=== PATIENT | female | born 1950 ===

== ENCOUNTER 2020-03-04 08:20 | Day surgery (SDC) | payer MEDICARE, OTHER ==
[2020-02-25 14:20] VITALS: BMI 24.1
[2020-03-04] MEDS ORDERED: OFLOXACIN 0.3% OPHTHALMIC SOLUTION 5 ML BOTTLE ONE (08:32)
[2020-03-04] MEDS ORDERED: TROPICAMIDE 1% OPHTH SOLN 15 ML BOTTLE ONE (08:32)
[2020-03-04] MEDS ORDERED: CYCLOPENTOLATE HCL 1% OPHTH SOLN 2 ML BOTTLE ONE (08:32)
[2020-03-04] MEDS ORDERED: KETOROLAC TROMETHAMINE 0.5% EYE DROP 1 DROP DROPS ONE (08:32)
[2020-03-04] MEDS ORDERED: PHENYLEPHRINE 2.5% OPHTH SOLN 15 ML BOTTLE ONE (08:33)
[2020-03-04] MEDS ORDERED: MIDAZOLAM HCL 2 MG/2 ML SINGLE DOSE VIAL ONE (08:37)
--- OUTSIDE RECORDS SUMMARY | 2020-03-04 08:52 | XMS ---
:1950 [facility] Care Team Providers Name Role Phone MD CHELITA Unavailable Unavailable ANTONIO FERRARO Unavailable Unavailable [id number] Unavailable Unavailable LATIA MILLER Unavailable Unavailable NENO RAE Unavailable Unavailable GERA MEYER Unavailable Unavailable Seun Unavailable Unavailable PEARL SHARMA Unavailable Unavailable RAVI MIKE Unavailable Unavailable JENN, HOME RESTORATION SERVICE SUPERVISOR-R Unavailable Unavailable [facility] Unavailable Unavailable Re-disclosure Warning The records that you are about to access may contain information from federally- assisted alcohol or drug abuse programs. If such information is present, then the following federally mandated warning applies: This information has been disclosed to you from records protected by federal confidentiality rules (42 CFR part 2). The federal rules prohibit you from making any further disclosure of this information unless further disclosure is expressly permitted by the written consent of the person to whom it pertains or as otherwise permitted by 42 CFR part 2. A general authorization for the release of medical or other information is NOT sufficient for this purpose. The Federal rules restrict any use of the information to criminally investigate or prosecute any alcohol or drug abuse patient.The records that you are about to access may contain highly sensitive health information, the redisclosure of which is protected by Article 27-F of the [facility] Public Health law. If you continue you may haveaccess to information: Regarding HIV / AIDS; Provided by facilities licensed or operated by the [facility] Office of Mental Health; or Provided by the [facility] Office for People With Developmental Disabilities. If such information is present, then the following [facility] mandated warning applies: This information has been disclosed to you from confidential records which are protected by state law. State law prohibits you from making any further disclosure of this information without the specific written consent of the person to whom it pertains, or as otherwise permitted by law. Any unauthorized further disclosure in violation of state law may result in a fine or fdc sentence or both. A general authorization for the release of medical or other information is NOT sufficient authorization for further disclosure. Allergies and Adverse Reactions Type Description Substance Reaction Status Data Source(s) 1 red dye red dye NEXTGEN ([facility]) Drug allergy Celebrex celecoxib 200 MG anaphylaxis Active eCW2 (Open Oral Capsule [facility] [Celebrex] [facility]) dog skin?? dog skin?? dog skin?? Unknown Active eCW2 ([facility]) fosamax fosamax Alendronic acid 70 rash and Active eCW2 ( Open MG Oral Tablet coughing Door [facility]) anxiety anxiety medications anxiety medications Unknown Active eCW2 (Open medications [facility]) Topamax Topamax topiramate 50 MG eyes Active eCW2 (Op en Oral Tablet swelling, [facility] [[facility]] rash [facility]) Lisinopril Lisinopril Lisinopril rash and Active eCW2 (Open shortness of [facility] breath [facility]) gabapentin gabapentin gabapentin 400 MG Unknown Active eCW2 (O pen Oral Capsule [facility]) red dye red dye red dye Unknown Active eCW2 (Open Door [facility]) red dye red dye red dye Unknown Active eCW2 (Open [facility]) dog skin?? dog skin?? dog skin?? Unknown Active eCW2 (Open Door [facility]) fosamax fosamax Alendronic acid 70 rash and Active eCW2 ( Open MG Oral Tablet coughing Door [facility] [Fostoa altax] [facility]) Topamax Topamax topiramate 50 MG eyes Active eCW2 (Op en Oral Tablet swelling, [facility] [Toptoa altax] rash [facility]) Lisinopril Lisinopril Lisinopril rash and Active eCW2 (Open shortness of Door [facility] breath [facility]) anxiety anxiety medications anxiety medications Unknown Active eCW2 (Open medications [facility]) gabapentin gabapentin gabapentin 300 MG Unknown Active eCW2 (O pen Oral Capsule [facility]) dog skin?? dog skin?? dog skin?? Unknown Active eCW2 ([facility]) fosamax fosamax Alendronic acid 70 rash and Active eCW2 ( Open MG Oral Tablet coughing Door [facility] [[facility]] [facility]) anxiety anxiety medications anxiety medications Unknown Active eCW2 (Open [facility]) Topamax Topamax topiramate 50 MG eyes Active eCW2 (Op en Oral Tablet swelling, [facility] [[facility]) Lisinopril Lisinopril Lisinopril rash and Active eCW2 (Open [facility]) gabapentin gabapentin gabapentin 100 MG Unknown Active eCW2 (O pen Oral Capsule [facility]) red dye red dye red dye Unknown Active eCW2 ([facility]) dog skin?? dog skin?? dog skin?? Unknown Active eCW2 ([facility]) fosamax fosamax Alendronic acid 70 rash and Active eCW2 ( Open MG Oral Tablet coughing [facility] [[facility]] [facility]) anxiety anxiety medications anxiety medications Unknown Active eCW2 (Open medications [facility]) Topamax Topamax topiramate 50 MG eyes Active eCW2 (Op en Oral Tablet swelling, [facility] [[facility] rash [facility]) Lisinopril Lisinopril Lisinopril rash and Active eCW2 ([facility]) gabapentin gabapentin gabapentin 50 MG/ML Unknown Active eCW2 (Open Oral Solution [facility]) red dye red dye red dye Unknown Active eCW2 ([facility]) dog skin?? dog skin?? dog skin?? Unknown Active eCW2 ([facility]) red dye red dye red dye Unknown Active eCW2 ([facility]) Lisinopril Lisinopril Lisinopril rash and Active eCW2 ([facility]) gabapentin gabapentin gabapentin 50 MG/ML Unknown Active eCW2 (Open Oral Solution [facility]) fosamax fosamax Alendronic acid 70 rash and Active eCW2 ( Open MG Oral Tablet coughing [facility] [[facility]) anxiety anxiety medications anxiety medications Unknown Active eCW2 (Open medications [facility]) Topamax Topamax topiramate 50 MG eyes Active eCW2 (Op en Oral Tablet swelling, [facility] [[facility]) anxiety anxiety medications anxiety medications Unknown Active eCW2 (Open medications [facility]) Topamax Topamax topiramate 50 MG eyes Active eCW2 (Op en Oral Tablet swelling, [facility] [[facility]] rash [facility]) gabapentin gabapentin gabapentin 50 MG/ML Unknown Active eCW2 (Open Oral Solution [facility]) Lisinopril Lisinopril Lisinopril rash and Active eCW2 (Open shortness of [facility]) red dye red dye red dye Unknown Active eCW2 ([facility]) dog skin?? dog skin?? dog skin?? Unknown Active eCW2 ([facility]) fosamax fosamax Alendronic acid 70 rash and Active eCW2 ( Open MG Oral Tablet coughing Door [facility]) Lisinopril Lisinopril Lisinopril 2.5 MG rash and Active eCW2 (O pen Oral Tablet [facility]) gabapentin gabapentin gabapentin 100 MG Unknown Active eCW2 (O pen Oral Capsule [facility]) red dye red dye red dye Unknown Active eCW2 ([facility]) dog skin?? dog skin?? dog skin?? Unknown Active eCW2 ([facility]) fosamax fosamax fosamax rash and Active eCW2 (Open coughing [facility]) anxiety anxiety medications anxiety medications Unknown Active eCW2 (Open medications [facility]) Topamax Topamax topiramate 200 MG eyes Active eCW2 (O pen Oral Tablet swelling, [facility] [[facility]] [facility]) Lisinopril Lisinopril Lisinopril 2.5 MG rash and Active eCW2 (O pen Oral Tablet shortness of [facility]) gabapentin gabapentin gabapentin 100 MG Unknown Active eCW2 (O pen Oral Capsule [facility]) red dye red dye red dye Unknown Active eCW2 ([facility]) dog skin?? dog skin?? dog skin?? Unknown Active eCW2 ([facility]) fosamax fosamax fosamax rash and Active eCW2 (Open coughing Door [facility]) anxiety anxiety medications anxiety medications Unknown Active eCW2 (Open medications [facility]) Topamax Topamax topiramate 200 MG eyes Active eCW2 (O pen Oral Tablet swelling, [facility] [Topamax] rash [facility]) Lisinopril Lisinopril Lisinopril 2.5 MG rash and Active eCW2 (O pen Oral Tablet shortness of [facility] breath [facility]) gabapentin gabapentin gabapentin 100 MG Unknown Active eCW2 (O pen Oral Capsule [facility]) red dye red dye red dye Unknown Active eCW2 (Open Door [facility]) dog skin?? dog skin?? dog skin?? Unknown Active eCW2 (Open Door [facility]) fosamax fosamax fosamax rash and Active eCW2 (Open coughing Door [facility]) anxiety anxiety medications anxiety medications Unknown Active eCW2 (Open medications [facility]) Topamax Topamax topiramate 200 MG eyes Active eCW2 (O pen Oral Tablet swelling, Door [facility] [Topamax] rash [facility]) red dye red dye red dye Unknown Active eCW2 (Open Door [facility]) dog skin?? dog skin?? dog skin?? Unknown Active eCW2 (Open Door [facility]) fosamax fosamax fosamax rash and Active eCW2 (Open coughing Door [facility]) anxiety anxiety medications anxiety medications Unknown Active eCW2 (Open medications [facility]) Topamax Topamax topiramate 50 MG eyes Active eCW2 (Op en Oral Tablet swelling, [facility] [Topamax] rash [facility]) gabapentin gabapentin gabapentin 800 MG Unknown Active eCW2 (O pen Oral Tablet [facility]) Lisinopril Lisinopril Lisinopril 5 MG Oral rash and Active eCW2 (Open Tablet shortness of [facility] breath [facility]) Drug allergy Celebrex celecoxib 200 MG anaphylaxis Active eCW2 (Open Oral Capsule [facility] [Celebrex] [facility]) Drug allergy topiramate topiramate [facility] Drug allergy NUCLEAR TEST DYE NUCLEAR TEST DYE [facility] Drug allergy Methylprednisolone Methylprednisolone [facility] Drug allergy ANTIANXIETY AND ANTIANXIETY AND We [facility] ANITDEPRESSIVES ANITDEPRESSIVES [facility] Drug allergy Celecoxib Celecoxib [facility] Drug allergy Red Dye Red Dye [facility] Drug allergy Morphine Morphine [facility] Drug allergy Diazepam Diazepam [facility] No No Information No Information eCW2 ( Open Information Door [facility]) No No Information No Information eCW2 ( Open Information Door [facility]) No No Information No Information eCW2 ( Open Information Door [facility]) No No Information No Allergy eCW2 (Open Information Information Door [facility]) No No Information No Allergy eCW2 (Open Information Information Door [facility]) No No Information No Allergy eCW2 (Open Information Information Door [facility]) No No Information No Allergy eCW2 (Open Information Information Door [facility]) No No Information No Allergy eCW2 (Open Information Information Door [facility]) Encounters Encounter Providers Location Date Indications Data Source(s ) Outpatient [facility]: [facility] 03/03/2020 [facility] ([facility] 05:12:18 PM [facility] EDT [facility]) Patient admitted. Outpatient Attender: [address] 12/29/2019 12:27:17 PM [facility] ([facility] EDT [facility]) Patient admitted. [place] 12/28/2019 eCW2 (Op en Door Open [facility] Door 12:00:00 AM T [facility]) Outpatient Attender: 12/19/2019 G45.8 [place] ANTONIO FERRARO [facility] KYM PhanOAdmitter: ANTONIO FERRAROReferrer: ANTONIO FERRARO G45.8 Outpatient Attender: NENO RAE 12/17/2019 [place] RUPESHAdmitter: BUTCH, 06:00:00 AM [facility] NENO GODDARDReferrer: [facility] NENO RAE [place] 11/13/2019 eCW2 (Op en Door Door Door 12:00:00 AM EDT [facility]) Outpatient Attender: RASHID 10/31/2019 [place] AMYAttender: BUTCH, 06:00:00 AM EDT [facility] NENO GODDARDAdmitter: [facility] RAVI MIKE [place] 10/24/2019 eCW2 ( Open Door Door [facility] 12:00:00 AM [facility] [place] 10/24/2019 eCW2 (Op en Door Door [facility] 12:00:00 AM [facility]T [facility] [place] 10/23/2019 eCW2 (Op en Door Door [facility] 12:00:00 AM EDT [facility] [place] [facility] 10/20/2019 eCW2 (Op en Door Open Door [facility] 12:00:00 AM EDT [facility] [place] [facility] 10/19/2019 eCW2 (Op en Door Open Door Door 12:00:00 AM EDT [facility] [place] [facility] [place] 10/11/2019 eCW2 ( Open Door Door Door 12:00:00 AM EDT [facility] [place] [facility] 09/27/2019 eCW2 (Op en Door Open Door Door 12:00:00 AM EDT [facility] [place] [facility] 09/10/2019 eCW2 (Op en Door Open Door [facility] 12:00:00 AM EDT [facility] [place] 09/05/2019 eCW2 (Op en Door Door Door 12:00:00 AM EDT [facility] [place] 08/25/2019 eCW2 (Op en Door Door Door 12:00:00 AM EDT [facility] Outpatient Attender: HVCS9 [facility] 08/17/2019 [facility] (Community 06:51:38 AM EDT [facility]) Patient admitted. [place] 08/04/2019 eCW2 (Op en Door Door Door 12:00:00 AM EST [facility] [place] [facility] 07/13/2019 eCW2 (Op en Door Open Door Door 12:00:00 AM EST [facility] [place] [facility] 07/13/2019 eCW2 (Op en Door Open Door Door 12:00:00 AM EST [facility] [place] 07/03/2019 eCW2 (Op en Door Door Door 12:00:00 AM EST [facility] [place] 07/02/2019 eCW2 (Op en Door Door Door 12:00:00 AM EST [facility] [place] [facility] 06/29/2019 eCW2 (Op en Door Open Door Door 12:00:00 AM EST [facility] [place] 06/28/2019 eCW2 (Op en Door Door Door 12:00:00 AM EST [facility] [place] 06/22/2019 eCW2 (Op en Door Door Door 12:00:00 AM EST [facility] Outpatient Attender: 06/20/2019 Abdoul MIKE, 01:56:00 PM EST [facility] Orion fernando AMYAdmitter: Care Corpora tiRAVI Licona [place] [facility] 06/18/2019 eCW2 (Op en Door Open Door Door 12:00:00 AM EST [facility] [place] 06/15/2019 eCW2 (Op en Door Open Door Door 12:00:00 AM EST [facility] [place] 06/15/2019 eCW2 (Op en Door Door Door 12:00:00 AM EST [facility] [place] [facility] 06/01/2019 eCW2 (Op en Door Open Door Door 12:00:00 AM EST [facility] [place] 06/01/2019 eCW2 (Op en Door Open Door Door 12:00:00 AM EST [facility] Outpatient Attender: 05/22/2019 NEXTGEN [place] 09:30:00 AM EST [facility] ) Outpatient Attender: BUTCH, 03/21/2019 Keyanna LAZCANO 06:00:00 AM [facility] Care Billie oration : RAVI MIKEAdmitter: NENO RAE Outpatient Attender: BUTCH, 12/11/2018 Keyanna LAZCANO 06:00:00 AM EDT [facility] Orion fernando GODDARDAdmitter Care Billie oration : NENO RAE Outpatient 12/03/2018 [facility] (Community 08:06:59 AM EDT Health Ca re [facility]) [place] 11/09/2018 eCW2 (Op en Door Door Door 12:00:00 AM [facility]T [facility] Outpatient Attender: JASMINE 11/02/2018 I77.1 [facility] tanner ALVAREZ 06:00:00 AM EDT I65.23 [facility] Orion AlvaradoAdmitter: Care Corporat ion ANTONIO FERRAROReferrer: ANTONIO FERRARO I77.1 I65.23 [place] [facility] [place] [facility] 09/27/2018 eCW 2 (Open Door Door Door 12:00:00 AM EDT [facility] [place] [facility] [place] 09/27/2018 eCW 2 (Open Door Door Door 12:00:00 AM EDT [facility] Outpatient Attender: 09/26/2018 I10 [facility] christine [id number] 10:21:00 AM EDT [facility] PAULArnulfoAdmitter: [id number] LATIA MILLERReferrer: PEARL SHARMA I10 [place] 09/21/2018 eCW2 (Op en Door Door Door 12:00:00 AM EDT [facility] [place] [facility] 09/20/2018 eCW2 (Op en Door Open Door Door 12:00:00 AM EDT [facility] Outpatient 09/15/2018 [facility] (Community 09:22:32 AM EDT Health Ca re [facility]) Outpatient 09/14/2018 [facility] (Community 04:09:15 PM EDT Health Ca re [facility]) [place] [facility] 09/08/2018 eCW2 (Op en Door Open Door Door 12:00:00 AM EDT [facility] Outpatient Attender: BUTCH, 09/04/2018 Keyanna LAZCANO 12:00:00 AM EDT Health [facility] hospital RUPESHAdmitter: Corporat ion NENO RAE Outpatient 08/18/2018 [facility] 07:27:00 AM EDT ([facility] [place] [facility] 08/02/2018 eCW2 (Op en Door Open Door Door 12:00:00 AM EST [facility] [place] [facility] 07/14/2018 eCW2 (Op en Door Open Door Door 12:00:00 AM EST [facility] [place] 06/12/2018 eCW2 (Op en Door Door Door 12:00:00 AM EST [facility] [place] [facility] 05/26/2018 eCW2 (Op en Door Open Door Door 12:00:00 AM EST [facility] [place] [facility] 05/12/2018 eCW2 (Op en Door Open Door Door 12:00:00 AM EST [facility] [place] [facility] 04/26/2018 eCW2 (Op en Door Open Door Door 12:00:00 AM EST [facility] [place] 03/24/2018 eCW2 (Op en Door Open Door Door 12:00:00 AM EDT [facility] [place] 03/10/2018 eCW2 (Op en Door Open Door Door 12:00:00 AM EDT [facility] [place] 02/24/2018 eCW2 (Op en Door Open Door Door 12:00:00 AM EDT [facility] [place] 12/09/2017 eCW2 (Op en Door Door Door 12:00:00 AM EDT [facility] [place] 12/07/2017 eCW2 (Op en Door Open Door Door 12:00:00 AM EDT [facility] [place] 11/23/2017 eCW2 (Op en Door Open Door Door 12:00:00 AM EDT [facility] [place] 10/21/2017 eCW2 (Op en Door Open Door Door 12:00:00 AM EDT [facility] [place] 10/14/2017 eCW2 (Op en Door Open Door Door 12:00:00 AM EDT [facility] [place] [facility] 09/28/2017 eCW2 (Op en Door Open Door Door 12:00:00 AM EDT [facility] [place] 09/26/2017 eCW2 (Op en Door Door Door 12:00:00 AM EDT [facility] [place] [facility] 09/26/2017 eCW2 (Op en Door Open Door Door 12:00:00 AM EDT [facility] [place] 09/26/2017 eCW2 (Op en Door Open Door Door 12:00:00 AM EDT [facility] [place] 08/19/2017 eCW2 (Op en Door Open Door Door 12:00:00 AM EDT [facility] [place] 08/19/2017 eCW2 (Op en Door Door Door 12:00:00 AM EDT [facility] [place] 08/12/2017 eCW2 (Op en Door Door Door 12:00:00 AM EDT [facility] [place] 08/05/2017 eCW2 (Op en Door Open Door Door 12:00:00 AM EST [facility] [place] 07/18/2017 eCW2 (Op en Door Open Door Door 12:00:00 AM EST [facility] [place] 06/24/2017 eCW2 (Op en Door Open Door Door 12:00:00 AM EST [facility] [place] 06/15/2017 eCW2 (Op en Door Open Door Door 12:00:00 AM EST [facility] [place] 04/07/2017 eCW2 (Op en Door Open Door Door 12:00:00 AM EST [facility] [place] 04/06/2017 eCW2 (Op en Door Open Door Door 12:00:00 AM EST [facility] [place] 04/04/2017 eCW2 (Op en Door Door Door 12:00:00 AM EST [facility] [place] 02/21/2017 eCW2 (Op en Door Open Door Door 12:00:00 AM EDT [facility] [place] 02/08/2017 eCW2 (Op en Door Open Door Door 12:00:00 AM EDT [facility] [place] 02/02/2017 eCW2 (Op en Door Open Door Door 12:00:00 AM EDT [facility] [place] 01/26/2017 eCW2 (Op en Door Open Door Door 12:00:00 AM EDT [facility] [place] 01/24/2017 eCW2 (Op en Door Open Door Door 12:00:00 AM EDT [facility] [place] 12/20/2016 eCW2 (Op en Door Open Door Door 12:00:00 AM EDT [facility] [place] 10/18/2016 eCW2 (Op en Door Open Door Door 12:00:00 AM EDT [facility] [place] 10/18/2016 eCW2 (Op en Door Open Door Door 12:00:00 AM EDT [facility] [place] 08/30/2016 eCW2 (Op en Door Open Door Door 12:00:00 AM EDT [facility] [place] 07/15/2016 eCW2 (Op en Door Door Door 12:00:00 AM EST [facility] [place] 07/05/2016 eCW2 (Op en Door Open Door Door 12:00:00 AM EST [facility] [place] 06/28/2016 eCW2 (Op en Door Open Door Door 12:00:00 AM EST [facility] [place] [facility] [place] 06/03/2016 eCW2 (Open Door Door Door 12:00:00 AM EST [facility] [place] 04/19/2016 eCW2 (Op en Door Open Door Door 12:00:00 AM EST [facility] [place] 04/07/2016 eCW2 (Op en Door Open Door Door 12:00:00 AM EST [facility] [place] 03/10/2016 eCW2 (Op en Door Open Door Door 12:00:00 AM EDT [facility] d[facility]) [place] 03/10/2016 eCW2 (Op en Door Open Door Door 12:00:00 AM EDT [facility] dical [facility]) [place] 03/08/2016 eCW2 (Op en Door Open Door Door 12:00:00 AM EDT [facility] dical [facility]) [place] [facility] [place] 03/05/2016 eCW2 (Open Door Door Door 12:00:00 AM EDT [facility] dical Center) [place] 03/03/2016 eCW2 (Op en Door Open Door Door 12:00:00 AM EDT [facility]) [place] [facility] [place] 02/26/2016 eCW2 (Open Door Door Door 12:00:00 AM EDT [facility]) [place] 01/26/2016 eCW2 (Op en Door Open Door Door 12:00:00 AM EDT [facility]) [place] 01/12/2016 eCW2 (Op en Door Open Door Door 12:00:00 AM EDT [facility]) [place] 01/07/2016 eCW2 (Op en Door Door Door 12:00:00 AM EDT [facility]) [place] 12/22/2015 eCW2 (Op en Door Open Door Door 12:00:00 AM EDT [facility]) [place] 12/22/2015 eCW2 (Op en Door Open Door Door 12:00:00 AM EDT [facility]) Attender: 12/17/2015 [place] [id number] 04:34:00 PM EDT Hos [facility]ital [id number] [facility]_[id number] [place] 12/10/2015 eCW2 (Op en Door Open Door Door 12:00:00 AM EDT [facility]) [place] [facility] 12/10/2015 eCW2 (Op en Door Open Door Door 12:00:00 AM EDT [facility]) [place] 11/07/2015 eCW2 (Op en Door Door Door 12:00:00 AM EDT [facility] [place] [facility] 10/15/2015 eCW2 (Op en Door Open Door Door 12:00:00 AM EDT [facility] [place] 10/15/2015 eCW2 (Op en Door Door Door 12:00:00 AM EDT [facility] [place] 10/06/2015 eCW2 (Op en Door Door Door 12:00:00 AM EDT [facility] [place] [facility] 08/25/2015 eCW2 (Op en Door Open Door Door 12:00:00 AM EDT [facility] [place] 08/22/2015 eCW2 (Op en Door Door Door 12:00:00 AM EDT [facility] [place] 08/21/2015 eCW2 (Op en Door Open Door Door 12:00:00 AM EDT [facility] [place] 08/06/2015 eCW2 (Op en Door Open Door Door 12:00:00 AM EST [facility] [place] 07/01/2015 eCW2 (Op en Door Open Door Door 12:00:00 AM EST [facility] [place] 06/30/2015 eCW2 (Op en Door Open Door Door 12:00:00 AM EST [facility] [place] 06/16/2015 eCW2 (Op en Door Door Door 12:00:00 AM EST [facility] [place] 06/13/2015 eCW2 (Op en Door Open Door Door 12:00:00 AM EST [facility] [place] 06/13/2015 eCW2 (Op en Door Door Door 12:00:00 AM EST [facility] [place] 06/13/2015 eCW2 (Op en Door Door Door 12:00:00 AM EST [facility] [place] 06/11/2015 eCW2 (Op en Door Open Door Door 12:00:00 AM EST [facility] [place] 06/11/2015 eCW2 (Op en Door Door Door 12:00:00 AM EST [facility] [place] 06/11/2015 eCW2 (Op en Door Door Door 12:00:00 AM EST [facility] [place] 05/05/2015 eCW2 (Op en Door Open Door Door 12:00:00 AM EST [facility] [place] 04/28/2015 eCW2 (Op en Door Door Door 12:00:00 AM EST [facility] [place] 04/16/2015 eCW2 (Op en Door Open Door Door 12:00:00 AM EST [facility] [place] 04/14/2015 eCW2 (Op en Door Open Door Door 12:00:00 AM EST [facility] [place] 04/08/2015 eCW2 (Op en Door Door Door 12:00:00 AM EST [facility] [place] 04/07/2015 eCW2 (Op en Door Open Door Door 12:00:00 AM EST [facility] [place] 04/07/2015 eCW2 (Op en Door Door Door 12:00:00 AM EST [facility] [place] [facility] [place] 04/02/2015 eCW2 (Open Door Door Door 12:00:00 AM EST [facility] [place] 03/31/2015 eCW2 (Op en Door Open Door Door 12:00:00 AM EST [facility] [place] 03/31/2015 eCW2 (Op en Door Door Door 12:00:00 AM EST [facility] [place] 03/31/2015 eCW2 (Op en Door Door Door 12:00:00 AM EST [facility] [place] 03/31/2015 eCW2 (Op en Door Door Door 12:00:00 AM EST [facility] [place] 03/28/2015 eCW2 (Op en Door Open Door Door 12:00:00 AM EDT [facility] [place] 03/10/2015 eCW2 (Op en Door Open Door Door 12:00:00 AM EDT [facility]) [place] 03/10/2015 eCW2 (Op en Door Open Door Door 12:00:00 AM EDT [facility] [place] 02/19/2015 eCW2 (Op en Door Door Door 12:00:00 AM EDT [facility]) [place] 02/10/2015 eCW2 (Op en Door Open Door Door 12:00:00 AM EDT [facility] [place] 01/29/2015 eCW2 (Op en Door Door Door 12:00:00 AM EDT [facility] [place] 01/27/2015 eCW2 (Op en Door Door Door 12:00:00 AM EDT [facility] [place] 01/27/2015 eCW2 (Op en Door Open Door Door 12:00:00 AM EDT [facility]) [place] 01/27/2015 eCW2 (Op en Door Door Door 12:00:00 AM EDT [facility] [place] 01/27/2015 eCW2 (Op en Door Door Door 12:00:00 AM EDT [facility]) [place] 01/20/2015 eCW2 (Op en Door Door Door 12:00:00 AM EDT [facility] [place] 01/15/2015 eCW2 (Op en Door Door Door 12:00:00 AM EDT [facility]) [place] 01/08/2015 eCW2 (Op en Door Open Door Door 12:00:00 AM EDT [facility]) [place] 12/19/2014 eCW2 (Op en Door Door Door 12:00:00 AM EDT [facility]) [place] 12/19/2014 eCW2 (Op en Door Door Door 12:00:00 AM EDT [facility]) [place] 12/13/2014 eCW2 (Op en Door Door Door 12:00:00 AM EDT [facility] [place] [facility] 12/12/2014 eCW2 (Op en Door Open Door Door 12:00:00 AM EDT [facility] [place] 12/11/2014 eCW2 (Op en Door Open Door Door 12:00:00 AM EDT [facility] [place] 12/11/2014 eCW2 (Op en Door Door Door 12:00:00 AM EDT [facility] [place] 12/09/2014 eCW2 (Op en Door Door Door 12:00:00 AM EDT [facility] [place] 11/14/2014 eCW2 (Op en Door Door Door 12:00:00 AM EDT [facility] [place] 11/13/2014 eCW2 (Op en Door Door Door 12:00:00 AM EDT [facility] [place] 11/07/2014 eCW2 (Op en Door Door Door 12:00:00 AM EDT [facility] [place] 11/06/2014 eCW2 (Op en Door Open Door Door 12:00:00 AM EDT [facility] [place] 10/25/2014 eCW2 (Op en Door Open Door Door 12:00:00 AM EDT [facility] [place] 10/23/2014 eCW2 (Op en Door Open Door Door 12:00:00 AM EDT [facility] [place] 09/11/2014 eCW2 (Op en Door Open Door Door 12:00:00 AM EDT [facility] [place] 09/10/2014 eCW2 (Op en Door Door Door 12:00:00 AM EDT [facility] [place] 08/16/2014 eCW2 (Op en Door Door Door 12:00:00 AM EDT [facility] [place] 08/13/2014 eCW2 (Op en Door Door Door 12:00:00 AM EDT [facility] [place] 08/13/2014 eCW2 (Op en Door Door Door 12:00:00 AM EDT [facility] [place] 07/31/2014 eCW2 (Op en Door Open Door Door 12:00:00 AM EST [facility] [place] 07/15/2014 eCW2 (Op en Door Door Door 12:00:00 AM EST [facility] [place] 07/10/2014 eCW2 (Op en Door Door Door 12:00:00 AM EST [facility] [place] 07/04/2014 eCW2 (Op en Door Door Door 12:00:00 AM EST [facility] [place] 07/03/2014 eCW2 (Op en Door Open Door Door 12:00:00 AM EST [facility] [place] 06/26/2014 eCW2 (Op en Door Door Door 12:00:00 AM EST [facility] [place] 05/31/2014 eCW2 (Op en Door Open Door Door 12:00:00 AM EST [facility] [place] 05/16/2014 eCW2 (Op en Door Door Door 12:00:00 AM EST [facility] [place] 05/16/2014 eCW2 (Op en Door Door Door 12:00:00 AM EST [facility] [place] 05/15/2014 eCW2 (Op en Door Open Door Door 12:00:00 AM EST [facility] [place] 05/08/2014 eCW2 (Op en Door Door Door 12:00:00 AM EST [facility] [place] 05/08/2014 eCW2 (Op en Door Open Door Door 12:00:00 AM EST [facility] [place] 05/08/2014 eCW2 (Op en Door Door Door 12:00:00 AM EST [facility] [place] 05/06/2014 eCW2 (Op en Door Open Door Door 12:00:00 AM EST [facility] [place] 05/06/2014 eCW2 (Op en Door Open Door Door 12:00:00 AM EST [facility] [place] 05/06/2014 eCW2 (Op en Door Open Door Door 12:00:00 AM EST [facility] [place] 04/29/2014 eCW2 (Op en Door Door Door 12:00:00 AM EST [facility] [place] 04/17/2014 eCW2 (Op en Door Door Door 12:00:00 AM EST [facility] [place] 04/01/2014 eCW2 (Op en Door Open Door Door 12:00:00 AM EST [facility] [place] 03/11/2014 eCW2 (Op en Door Open Door Door 12:00:00 AM EDT [facility] [place] 03/09/2014 eCW2 (Op en Door Door Door 12:00:00 AM EDT [facility] [place] 02/27/2014 eCW2 (Op en Door Open Door Door 12:00:00 AM EDT [facility] [place] 02/18/2014 eCW2 (Op en Door Open Door Door 12:00:00 AM EDT [facility] [place] 01/29/2014 eCW2 (Op en Door Open Door Door 12:00:00 AM EDT [facility] [place] 01/29/2014 eCW2 (Op en Door Open Door Door 12:00:00 AM EDT [facility] [place] 01/23/2014 eCW2 (Op en Door Open Door Door 12:00:00 AM EDT [facility] [place] 01/23/2014 eCW2 (Op en Door Open Door Door 12:00:00 AM EDT [facility] [place] 01/21/2014 eCW2 (Op en Door Open Door Door 12:00:00 AM EDT [facility] [place] 01/17/2014 eCW2 (Op en Door Open Door Door 12:00:00 AM EDT [facility] [place] 01/17/2014 eCW2 (Op en Door Open Door Door 12:00:00 AM EDT [facility] [place] 01/14/2014 eCW2 (Op en Door Open Door Door 12:00:00 AM EDT [facility] [place] 12/18/2013 eCW2 (Op en Door Open Door Door 12:00:00 AM EDT [facility] [place] 12/08/2013 eCW2 (Op en Door Open Door Door 12:00:00 AM EDT [facility] [place] 11/28/2013 eCW2 (Op en Door Open Door Door 12:00:00 AM EDT [facility] [place] 10/11/2013 eCW2 (Op en Door Open Door Door 12:00:00 AM EDT [facility] [place] 08/01/2013 eCW2 (Op en Door Door Door 12:00:00 AM EST [facility] [place] 07/02/2013 eCW2 (Op en Door Open Door Door 12:00:00 AM EST [facility] [place] 06/08/2013 eCW2 (Op en Door Open Door Door 12:00:00 AM EST [facility] [place] 06/06/2013 eCW2 (Op en Door Open Door Door 12:00:00 AM EST [facility] [place] 05/24/2013 eCW2 (Op en Door Door Door 12:00:00 AM EST [facility] [place] 05/24/2013 eCW2 (Op en Door Door Door 12:00:00 AM EST [facility] [place] 05/24/2013 eCW2 (Op en Door Open Door Door 12:00:00 AM EST [facility] [place] 05/24/2013 eCW2 (Op en Door Door Door 12:00:00 AM EST [facility] [place] 04/11/2013 eCW2 (Op en Door Open Door Door 12:00:00 AM EST [facility] [place] 04/04/2013 eCW2 (Op en Door Open Door Door 12:00:00 AM EST [facility] [place] 03/13/2013 eCW2 (Op en Door Door Door 12:00:00 AM EDT [facility] [place] 03/13/2013 eCW2 (Op en Door Door Door 12:00:00 AM EDT [facility] [place] 03/12/2013 eCW2 (Op en Door Open Door Door 12:00:00 AM EDT [facility] [place] 02/12/2013 eCW2 (Op en Door Open Door Door 12:00:00 AM EDT [facility] [place] 02/05/2013 eCW2 (Op en Door Door Door 12:00:00 AM EDT [facility] [place] 01/16/2013 eCW2 (Op en Door Open Door Door 12:00:00 AM EDT [facility] [place] 12/06/2012 eCW2 (Op en Door Open Door Door 12:00:00 AM EDT [facility] [place] 12/04/2012 eCW2 (Op en Door Open Door Door 12:00:00 AM EDT [facility]) [place] 11/20/2012 eCW2 (Op en Door Open Door Door 12:00:00 AM EDT [facility] [place] 11/20/2012 eCW2 (Op en Door Open Door Door 12:00:00 AM EDT [facility] [place] 11/16/2012 eCW2 (Op en Door Open Door Door 12:00:00 AM EDT [facility] [place] 11/13/2012 eCW2 (Op en Door Open Door Door 12:00:00 AM EDT [facility] [place] 11/13/2012 eCW2 (Op en Door Door Door 12:00:00 AM EDT [facility] [place] 11/13/2012 eCW2 (Op en Door Door Door 12:00:00 AM EDT [facility] [place] 11/11/2012 eCW2 (Op en Door Open Door Door 12:00:00 AM EDT [facility] [place] 10/26/2012 eCW2 (Op en Door Door Door 12:00:00 AM EDT [facility] [place] 10/25/2012 eCW2 (Op en Door Door Door 12:00:00 AM EDT [facility] [place] 10/25/2012 eCW2 (Op en Door Door Door 12:00:00 AM EDT [facility] [place] 10/20/2012 eCW2 (Op en Door Open Door Door 12:00:00 AM EDT [facility] [place] 10/11/2012 eCW2 (Op en Door Door Door 12:00:00 AM EDT [facility] [place] 09/18/2012 eCW2 (Op en Door Open Door Door 12:00:00 AM EDT [facility] [place] 08/16/2012 eCW2 (Op en Door Door Door 12:00:00 AM EDT [facility] [place] 08/09/2012 eCW2 (Op en Door Open Door Door 12:00:00 AM EDT [facility] [place] 08/09/2012 eCW2 (Op en Door Open Door Door 12:00:00 AM EDT [facility] [place] 08/03/2012 eCW2 (Op en Door Door Door 12:00:00 AM EST [facility] [place] 07/18/2012 eCW2 (Op en Door Door Door 12:00:00 AM EST [facility] [place] 07/13/2012 eCW2 (Op en Door Door Door 12:00:00 AM EST [facility] [place] 07/12/2012 eCW2 (Op en Door Open Door Door 12:00:00 AM EST [facility] [place] 07/03/2012 eCW2 (Op en Door Door Door 12:00:00 AM EST [facility] [place] 06/21/2012 eCW2 (Op en Door Door Door 12:00:00 AM EST [facility] [place] 06/12/2012 eCW2 (Op en Door Open Door Door 12:00:00 AM EST [facility] [place] 06/09/2012 eCW2 (Op en Door Open Door Door 12:00:00 AM EST [facility] [place] 06/07/2012 eCW2 (Op en Door Open Door Door 12:00:00 AM EST [facility] [place] 02/16/2012 eCW2 (Op en Door Door Door 12:00:00 AM EDT [facility] [place] 02/09/2012 eCW2 (Op en Door Open Door Door 12:00:00 AM EDT [facility] [place] 01/28/2012 eCW2 (Op en Door Open Door Door 12:00:00 AM EDT [facility] [place] 01/28/2012 eCW2 (Op en Door Open Door Door 12:00:00 AM EDT [facility] [place] 01/20/2012 eCW2 (Op en Door Open Door Door 12:00:00 AM EDT [facility] [place] 12/31/2011 eCW2 (Op en Door Open Door Door 12:00:00 AM EDT [facility] [place] 12/24/2011 eCW2 (Op en Door Open Door Door 12:00:00 AM EDT [facility] [place] 11/24/2011 eCW2 (Op en Door Open Door Door 12:00:00 AM EDT [facility] [place] 11/24/2011 eCW2 (Op en Door Open Door Door 12:00:00 AM EDT [facility] [place] 10/28/2011 eCW2 (Op en Door Open Door Door 12:00:00 AM EDT [facility] [place] 10/27/2011 eCW2 (Op en Door Open Door Door 12:00:00 AM EDT [facility] [place] 10/27/2011 eCW2 (Op en Door Door Door 12:00:00 AM EDT [facility] [place] 10/18/2011 eCW2 (Op en Door Door Door 12:00:00 AM EDT [facility] [place] [facility] 09/27/2011 eCW2 (Op en Door Open Door Door 12:00:00 AM EDT [facility] [place] 09/17/2011 eCW2 (Op en Door Open Door Door 12:00:00 AM EDT [facility] [place] 09/08/2011 eCW2 (Op en Door Door Door 12:00:00 AM EDT [facility] [place] 08/25/2011 eCW2 (Op en Door Door Door 12:00:00 AM EDT [facility] [place] 08/25/2011 eCW2 (Op en Door Door Door 12:00:00 AM EDT [facility] [place] 08/25/2011 eCW2 (Op en Door Door Door 12:00:00 AM EDT [facility] [place] 07/21/2011 eCW2 (Op en Door Door Door 12:00:00 AM EST [facility] [place] 06/21/2011 eCW2 (Op en Door Open Door Door 12:00:00 AM EST [facility] [place] 06/02/2011 eCW2 (Op en Door Door Door 12:00:00 AM EST [facility] [place] 05/10/2011 eCW2 (Op en Door Open Door Door 12:00:00 AM EST [facility] [place] 05/10/2011 eCW2 (Op en Door Open Door Door 12:00:00 AM EST [facility] [place] [facility] 04/05/2011 eCW2 (Op en Door Open Door Door 12:00:00 AM EST [facility] [place] [facility] 04/05/2011 eCW2 (Op en Door Open Door Door 12:00:00 AM EST [facility] [place] 03/24/2011 eCW2 (Op en Door Door Door 12:00:00 AM EDT [facility] [place] 03/08/2011 eCW2 (Op en Door Door Door 12:00:00 AM EDT [facility] [place] [facility] 03/03/2011 eCW2 (Op en Door Open Door Door 12:00:00 AM EDT [facility] [place] [facility] 03/02/2011 eCW2 (Op en Door Open Door Door 12:00:00 AM EDT [facility] [place] [facility] 02/03/2011 eCW2 (Op en Door Open Door Door 12:00:00 AM EDT [facility] [place] [facility] 02/03/2011 eCW2 (Op en Door Open Door Door 12:00:00 AM EDT [facility] [place] [facility] 02/03/2011 eCW2 (Op en Door Open Door Door 12:00:00 AM EDT [facility] [place] [facility] 01/06/2011 eCW2 (Op en Door Open Door Door 12:00:00 AM EDT [facility] [place] [facility] 12/30/2010 eCW2 (Op en Door Open Door Door 12:00:00 AM EDT [facility] [place] [facility] 12/30/2010 eCW2 (Op en Door Open Door Door 12:00:00 AM EDT [facility] [place] [facility] 12/16/2010 eCW2 (Op en Door Open [facility] Door 12:00:00 AM EDT [facility] [place] [facility] 12/14/2010 eCW2 (Op en Door Open Door Door 12:00:00 AM EDT [facility] [place] [facility] 12/14/2010 eCW2 (Op en Door Open Door Door 12:00:00 AM EDT [facility] [place] [facility] 12/02/2010 eCW2 (Op en Door Open Door Door 12:00:00 AM EDT [facility] [place] [facility] 11/18/2010 eCW2 (Op en Door Open [facility] Door 12:00:00 AM EDT [facility] [place] [facility] 11/02/2010 eCW2 (Op en Door Open [facility] Door 12:00:00 AM EDT [facility] [place] [facility] 10/05/2010 eCW2 (Op en Door Open Door Door 12:00:00 AM EDT [facility] [place] [facility] 10/05/2010 eCW2 (Op en Door Open Door Door 12:00:00 AM EDT [facility] [place] [facility] 09/21/2010 eCW2 (Op en Door Open Door Door 12:00:00 AM EDT [facility] [place] [facility] 09/02/2010 eCW2 (Op en Door Open Door Door 12:00:00 AM EDT [facility] [place] [facility] 08/14/2010 eCW2 (Op en Door Open [facility] Door 12:00:00 AM EDT [facility] [place] [facility] 07/10/2010 eCW2 (Op en Door Open Door Door 12:00:00 AM EST [facility] [place] [facility] 06/19/2010 eCW2 (Op en Door Open [facility] Door 12:00:00 AM EST [facility] [place] [facility] 06/19/2010 eCW2 (Op en Door Open [facility] Door 12:00:00 AM EST [facility] [place] [facility] 06/12/2010 eCW2 (Op en Door Open [facility] Door 12:00:00 AM EST [facility] [place] 06/08/2010 eCW2 (Op en Door Door Door 12:00:00 AM EST [facility] [place] [facility] 05/27/2010 eCW2 (Op en Door Open [facility] Door 12:00:00 AM EST [facility] [place] [facility] 05/18/2010 eCW2 (Op en Door Open [facility] 12:00:00 AM EST [facility] [place] [facility] 05/06/2010 eCW2 (Op en Door Open [facility] 12:00:00 AM EST [facility] [place] [facility] 05/04/2010 eCW2 (Op en Door Open [facility] 12:00:00 AM EST [facility] [place] [facility] 04/29/2010 eCW2 (Op en Door Open [facility] 12:00:00 AM EST [facility] [place] 04/22/2010 eCW2 (Op en Door Door Door 12:00:00 AM EST [facility] [place] 04/21/2010 eCW2 (Op en Door Door Door 12:00:00 AM EST [facility] [place] [facility] 04/10/2010 eCW2 (Op en Door Open [facility] Door 12:00:00 AM EST [facility] [place] [facility] [place] [facility] 04/10/2010 eCW2 (Op en Door Door Door 12:00:00 AM EST [facility] [place] [facility] 03/27/2010 eCW2 (Op en Door Open Door Door 12:00:00 AM EDT [facility] [place] [facility] 02/06/2010 eCW2 (Op en Door Open [facility] Door 12:00:00 AM EDT [facility] [place] [facility] 02/06/2010 eCW2 (Op en Door Open Door Door 12:00:00 AM EDT [facility] [place] [facility] 12/15/2009 eCW2 (Op en Door Open Door Door 12:00:00 AM EDT [facility] [place] 12/12/2009 eCW2 (Op en Door Door Door 12:00:00 AM EDT [facility] [place] 09/04/2009 eCW2 (Op en Door Door Door 12:00:00 AM EDT [facility] [facility] [place] 08/11/2009 eCW2 (Op en Door Door Door 12:00:00 AM EDT [facility] [place] 08/04/2009 eCW2 (Op en Door Door Door 12:00:00 AM EST [facility] [place] 08/02/2009 eCW2 (Op en Door Door Door 12:00:00 AM EST [facility] [place] 04/04/2009 eCW2 (Op en Door Door Door 12:00:00 AM EST [facility] [place] 03/26/2009 eCW2 (Op en Door Door Door 12:00:00 AM EDT [facility] [place] 03/24/2009 eCW2 (Op en Door Door Door 12:00:00 AM EDT [facility] [place] 03/24/2009 eCW2 (Op en Door Door Door 12:00:00 AM EDT [facility] [place] 02/21/2009 eCW2 (Op en Door Door Door 12:00:00 AM EDT [facility] [place] 02/17/2009 eCW2 (Op en Door Door Door 12:00:00 AM EDT [facility] [place] 02/14/2009 eCW2 (Op en Door Door Door 12:00:00 AM EDT [facility] [place] 01/20/2009 eCW2 (Op en Door Door Door 12:00:00 AM EDT [facility] [place] 01/11/2009 eCW2 (Op en Door Door Door 12:00:00 AM EDT [facility] [place] 01/06/2009 eCW2 (Op en Door Door Door 12:00:00 AM EDT [facility] [place] 12/09/2008 eCW2 (Op en Door Door Door 12:00:00 AM EDT [facility] [place] 11/23/2008 eCW2 (Op en Door Door Door 12:00:00 AM EDT [facility] [place] 11/04/2008 eCW2 (Op en Door Door Door 12:00:00 AM EDT [facility] [place] 10/18/2008 eCW2 (Op en Door Door Door 12:00:00 AM EDT [facility] [place] 09/30/2008 eCW2 (Op en Door Door Door 12:00:00 AM EDT [facility] [place] 09/26/2008 eCW2 (Op en Door Door Door 12:00:00 AM EDT [facility] [place] 09/25/2008 eCW2 (Op en Door Door Door 12:00:00 AM EDT [facility] [place] 09/18/2008 eCW2 (Op en Door Door Door 12:00:00 AM EDT [facility] [place] 09/04/2008 eCW2 (Op en Door Door Door 12:00:00 AM EDT [facility] [place] 08/14/2008 eCW2 (Op en Door Door Door 12:00:00 AM EDT [facility] [place] 06/12/2008 eCW2 (Op en Door Door Door 12:00:00 AM EST [facility] [place] 06/07/2008 eCW2 (Op en Door Door Door 12:00:00 AM EST [facility] [place] 06/03/2008 eCW2 (Op en Door Door Door 12:00:00 AM EST [facility] [place] 06/03/2008 eCW2 (Op en Door Door Door 12:00:00 AM EST [facility] [place] 04/05/2008 eCW2 (Op en Door Door Door 12:00:00 AM EST [facility] [place] 04/05/2008 eCW2 (Op en Door Door Door 12:00:00 AM EST [facility] [place] 04/01/2008 eCW2 (Op en Door Door Door 12:00:00 AM EST [facility] [place] 04/01/2008 eCW2 (Op en Door Door Door 12:00:00 AM EST [facility] [place] 03/22/2008 eCW2 (Op en Door Door Door 12:00:00 AM EDT [facility] [place] 09/13/2007 eCW2 (Op en Door Door Door 12:00:00 AM EDT [facility] [place] 09/04/2007 eCW2 (Op en Door Door Door 12:00:00 AM EDT [facility] [place] 08/21/2007 eCW2 (Op en Door Door Door 12:00:00 AM EDT [facility] [place] 08/01/2007 eCW2 (Op en Door Door Door 12:00:00 AM EST [facility] [place] 05/24/2007 eCW2 (Op en Door Door Door 12:00:00 AM EST [facility] [place] 04/25/2007 eCW2 (Op en Door Door Door 12:00:00 AM EST [facility] [place] 03/24/2007 eCW2 (Op en Door Door Door 12:00:00 AM EDT [facility] [place] 03/17/2007 eCW2 (Op en Door Door Door 12:00:00 AM EDT [facility] [place] 03/17/2007 eCW2 (Op en Door Door Door 12:00:00 AM EDT [facility] [place] 03/16/2007 eCW2 (Op en Door Door Door 12:00:00 AM EDT [facility] [place] 03/16/2007 eCW2 (Op en Door Door Door 12:00:00 AM EDT [facility] [place] 03/13/2007 eCW2 (Op en Door Door Door 12:00:00 AM EDT [facility] [place] 03/01/2007 eCW2 (Op en Door Door Door 12:00:00 AM EDT [facility]) [place] 02/08/2007 eCW2 (Op en Door Door Door 12:00:00 AM EDT [facility]) [place] 02/06/2007 eCW2 (Op en Door Door Door 12:00:00 AM EDT [facility]) [place] 01/16/2007 eCW2 (Op en Door Door Door 12:00:00 AM EDT [facility]) [place] 12/16/2006 eCW2 (Op en Door Door Door 12:00:00 AM EDT [facility]) Outpatient Att[facility] : TANNER BARAJAS Attender: 03/12/1998 [facility] [id number] 04:00:00 PM EDT Hos pital [id number] Attender: 03/12/1998 [facility] [id number] 02:00:00 PM EDT Hos pital [id number] Attender: 03/12/1998 [facility] [place] [id number] 10:00:00 AM EDT Hos pital [id number] Attender: 03/12/1998 [facility] [place] [id number] 10:00:00 AM EDT Hos pital [id number] Attender: 03/12/1998 [facility] [place] [id number] 09:00:00 AM EDT Hos pital [id number] Immunizations Vaccine Date Status Description Data Source(s) ketorolac tromethamine 09/28/2017 completed eCW2 ([facility] (Torodol) 15/60 mg inj 02:33:00 PM EDT [facility]) No Known Immunizations completed eCW2 ([facility]) No Known Immunizations completed eCW2 ([facility]) No Known Immunizations completed eCW2 ([facility]) No Known Immunizations completed eCW2 ([facility]) No Known Immunizations completed eCW2 ([facility]) No Known Immunizations completed eCW2 ([facility]) No Known Immunizations completed eCW2 ([facility]) No Known Immunizations completed eCW2 ([facility]) No Known Immunizations completed eCW2 ([facility]) No Known Immunizations completed eCW2 ([facility]) No Known Immunizations completed eCW2 ([facility]) No Known Immunizations completed eCW2 ([facility]) No Known Immunizations completed eCW2 ([facility]) No Known Immunizations completed eCW2 ([facility]) No Known Immunizations completed eCW2 ([facility]) No Known Immunizations completed eCW2 ([facility]) No Known Immunizations completed eCW2 ([facility]) Medications Medication Brand Start Product Dose Route Administrative Pharmacy [facility] Indications Reaction Description Data Name Date Form Instructions Instructions Source(s) Methylpheni Methyl ORAL complet Methyl phenid 2019 Table ed ate HCl - 20 [facility] Hydrochlor[facility] ate 12:00: t MG ORAL Hos pital de 20 MG HCl - 00 AM Tablet Oral Tablet 20 MG EDT ORAL Tablet Guanfacine guanFA ORAL complet guanFAC INE [facility] 1 MG Oral 2019 Table ed HCl - 1 MG Jostin cents Tablet HCl - 12:00: t ORAL Tablet Hos pital 1 MG 00 AM ORAL EDT Tablet Methylpheni Methyl ORAL complet Methyl phenid phen2019 Table ed ate HCl - 20 [facility] Hydro[facility] ate 12:00: t MG ORAL Hos [facility]ital de 20 MG HCl - 00 AM Tablet Oral Tablet 20 MG EDT ORAL Tablet Guanfacine guanFA ORAL complet guanFAC INE [facility] 1 MG Oral CINE 2019 Table ed HCl - 1 MG Jostin cents Tablet HCl - 12:00: t ORAL Tablet Hos pital 1 MG 00 AM ORAL EDT Tablet Methylpheni Methyl ORAL complet Methyl phenid phenid 2019 Table ed ate HCl - 20 [facility] Hydro[facility] ate 12:00: t MG ORAL Hos [facility] de 20 MG HCl - 00 AM Tablet Oral Tablet 20 MG EDT ORAL Tablet Methylpheni Methyl ORAL complet Methyl phenid phenid 2019 Table ed ate HCl - 20 [facility] Hydrochlori ate 12:00: t MG ORAL Hos [facility] de 20 MG HCl - 00 AM Tablet Oral Tablet 20 MG EDT ORAL Tablet Guanfacine guanFA ORAL complet guanFAC [facility]E [facility] 1 MG Oral CINE 2019 Table ed HCl - 1 MG Jostin cents Tablet HCl - 12:00: t ORAL Tablet Hos pital 1 MG 00 AM ORAL EDT Tablet Guanfacine guanFA ORAL complet guanFAC INE [facility] 1 MG Oral CINE 2019 Table ed HCl - 1 MG Jostin cents Tablet HCl - 12:00: t ORAL Tablet Hos pital 1 MG 00 AM ORAL EDT Tablet Methylpheni Methyl ORAL complet Methyl phenid phenid 2019 Table ed ate HCl - 20 [facility] Hydro[facility] ate 12:00: t MG ORAL Hos [facility] de 20 MG HCl - 00 AM Tablet Oral Tablet 20 MG EDT ORAL Tablet Guanfacine guanFA ORAL complet guanFAC [facility]E [facility] 1 MG Oral CINE 2019 Table ed HCl - 1 MG Jostin cents Tablet HCl - 12:00: t ORAL Tablet Hos pital 1 MG 00 AM ORAL EST Tablet Methylpheni Methyl ORAL complet Methyl phenid phenid 2019 Table ed ate HCl - 20 [facility] Hydro[facility] ate 12:00: t MG ORAL Hos pital de 20 MG HCl - 00 AM Tablet Oral Tablet 20 MG EST ORAL Tablet Guanfacine guanFA ORAL complet guanFAC [facility]E [facility] 1 MG Oral CINE 2019 Table ed HCl - 1 MG Jostin cents Tablet HCl - 12:00: t ORAL Tablet Hos pital 1 MG 00 AM ORAL EST Tablet Methylpheni Methyl ORAL complet Methyl phenid phenid 2019 Table ed ate HCl - 20 [facility] 12:00: t MG ORAL Hos p[facility] de 20 MG HCl - 00 AM Tablet Oral Tablet 20 MG EST ORAL Tablet Methylpheni Methyl ORAL complet Methyl phenid phenid 2018 Table ed ate HCl - 20 [facility] ate 12:00: t MG ORAL Hos pital de 20 MG HCl - 00 AM Tablet Oral Tablet 20 MG EST ORAL Tablet Guanfacine guanFA ORAL complet guanFAC [facility]E [facility] 1 MG Oral CINE 2018 Table ed HCl - 1 MG Jostin cents Tablet HCl - 12:00: t ORAL Tablet Hos pital 1 MG 00 AM ORAL EST Tablet Methylpheni Methyl ORAL complet Methyl phenid phenid 2018 Table ed ate HCl - 20 [facility] 12:00: t MG ORAL Hos [facility]ital de 20 MG HCl - 00 AM Tablet Oral Tablet 20 MG EDT ORAL Tablet Methylpheni Methyl ORAL complet Methyl phenid phenid 2018 Table ed ate HCl - 20 [facility] ate 12:00: t MG ORAL [facility] de 20 MG HCl - 00 AM Tablet Oral Tablet 20 MG EDT ORAL Tablet Methylpheni Methyl ORAL complet Methyl phenid phenid 2018 Table ed ate HCl - 20 [facility] 12:00: t MG ORAL Hos pital de 20 MG HCl - 00 AM Tablet Oral Tablet 20 MG EDT ORAL Tablet Guanfacine guanFA ORAL complet guanFAC [facility]E [facility] 1 MG Oral CINE 2018 Table ed HCl - 1 MG Jostin cents Tablet HCl - 12:00: t ORAL Tablet Hos pital 1 MG 00 AM ORAL EDT Tablet Methylpheni Methyl ORAL complet Methyl phenid phenid 2018 Table ed ate HCl - 20 [facility] 12:00: t MG ORAL Hos pital de 20 MG HCl - 00 AM Tablet Oral Tablet 20 MG EDT ORAL Tablet Guanfacine guanFA ORAL complet guanFAC [facility]E [facility] 1 MG Oral CINE 2018 Table ed HCl - 1 MG Jostin cents Tablet HCl - 12:00: t ORAL Tablet Hos pital 1 MG 00 AM ORAL EDT Tablet Methylpheni Methyl ORAL complet Methyl phenid phenid 2018 Table ed ate HCl - 20 [facility] 12:00: t MG ORAL Hos pital de 20 MG HCl - 00 AM Tablet Oral Tablet 20 MG EDT ORAL Tablet Ondansetron Ondans 08/02/ active 1 tab(s ) eCW2 (Open 4 MG Oral etron 2019 Door Tablet Hydroc 12:00: Family Ondansetron hlorid 00 AM Medic al Hydrochlori e 4 mg EST Center ) de 4 mg Ondansetron Ondans 08/02/ active 1 tab(s ) eCW2 (Open 4 MG Oral etron 2019 Door Tablet Hydroc 12:00: Family Ondansetron hlorid 00 AM Medic al Hydrochlori e 4 mg EST Center ) de 4 mg Guanfacine guanFA ORAL complet guanFAC [facility]E [facility] 1 MG Oral CINE 2018 Table ed HCl - 1 MG Jostin cents Tablet HCl - 12:00: t ORAL Tablet Hos pital 1 MG 00 AM ORAL EST Tablet Meclizine Mecliz 05/12/ active 1 tab(s) eCW2 (Open Hydrochlori ine 2017 Door de 12.5 MG Hydroc 12:00: Famil y Oral Tablet hlorid 00 AM Medic al Meclizine e 12.5 EST Center) Hydrochlori mg de 12.5 mg Meclizine Mecliz 05/12/ active 1 tab(s) eCW2 (Open Hydrochlori ine 2017 Door de 12.5 MG Hydroc 12:00: Famil y Oral Tablet hlorid 00 AM Medic al Meclizine e 12.5 EST Center) Hydrochlori mg de 12.5 mg Sulfamethox Sulfam 05/12/ active 1 tab(s ) eCW2 (Open azole 800 ethoxa 2018 Door MG / zole-T 12:00: Family Trimethopri rimeth 00 AM Medic al m 160 MG oprim EST Center) Oral Tablet DS 800 Sulfamethox mg-160 azole-Trime mg thoprim DS 800 mg-160 mg Clotrimazol UNK 05/12/ active 1 srinath eCW 2 (Open e, Topical 2018 Door 1% 12:00: Family 00 AM Medical EST Center) Meclizine Mecliz 05/12/ active 1 tab(s) eCW2 (Open Hydrochlori ine 2017 Door de 12.5 MG Hydroc 12:00: Famil y Oral Tablet hlorid 00 AM Medic al Meclizine e 12.5 EST Center) Hydrochlori mg de 12.5 mg Meclizine Mecliz 05/12/ active 1 tab(s) eCW2 (Open Hydrochlori ine 2017 Door de 12.5 MG Hydroc 12:00: Famil y Oral Tablet hlorid 00 AM Medic al Meclizine e 12.5 EST Center) Hydrochlori mg de 12.5 mg Antivert 25 K 04/26/ active 1 tab(s) eCW2 (Open mg 2018 Door 12:00: Family 00 AM Medical EST Center) Antivert 25 UNK 04/26/ active 1 tab(s) eCW2 (Open mg 2018 Door 12:00: Family 00 AM Medical EST Center) ketoconazol K active 1 srinath eCW 2 (Open e topical 2018 Door 2% 12:00: Family 00 AM Medical EST Center) Antivert 25 K 04/26/ active 1 tab(s) eCW2 (Open mg 2018 Door 12:00: Family 00 AM Medical EST Center) Antivert 25 K 04/26/ active 1 tab(s) eCW2 (Open mg 2018 Door 12:00: Family 00 AM Medical EST Center) Kuric 2% [facility] 04/26/ active 1 srinath eCW2 ( Open 2018 Door 12:00: Family 00 AM Medical EST Center) Methylpheni Methyl ORAL complet Methyl phenid phenid 2017 Table ed ate HCl - 20 [facility] Hydro[facility] 12:00: t MG ORAL Hos pital de 20 MG HCl - 00 AM Tablet Oral Tablet 20 MG EST ORAL Tablet Guanfacine guanFA ORAL complet guanFAC [facility]E [facility] 1 MG Oral CINE 2017 Table ed HCl - 1 MG Jostin cents Tablet HCl - 12:00: t ORAL Tablet Hos pital 1 MG 00 AM ORAL EST Tablet Methylpheni Methyl ORAL complet Methyl phenid phenid 2017 Table ed ate HCl - 20 [facility] Hydrochlor[facility] ate 12:00: t MG ORAL Hos pital de 20 MG HCl - 00 AM Tablet Oral Tablet 20 MG EDT ORAL Tablet Triamcinolo K 02/24/ active 1 srinath eCW 2 (Open ne 2018 Door Acetonide 12:00: Family Topical 00 AM Medical 0.1% EDT Center) Methylpheni Methyl ORAL complet Methyl phenid phenid 2017 Table ed ate HCl - 20 [facility] Hydro[facility] 12:00: t MG ORAL Hos pital de 20 MG HCl - 00 AM Tablet Oral Tablet 20 MG EDT ORAL Tablet Guanfacine guanFA ORAL complet guanFAC [facility] 1 MG Oral CINE 2017 Table ed HCl - 1 MG Jostin cents Tablet HCl - 12:00: t ORAL Tablet Hos pital 1 MG 00 AM ORAL EDT Tablet Methylpheni Methyl ORAL complet Methyl phenid phenid 2017 Table ed ate HCl - 20 [facility] Hydro[facility] ate 12:00: t MG ORAL Hos pital de 20 MG HCl - 00 AM Tablet Oral Tablet 20 MG EDT ORAL Tablet Methylpheni Methyl ORAL complet Methyl phenid phenid 2017 Table ed ate HCl - 20 [facility] Hydrochlori ate 12:00: t MG ORAL Hos pital de 20 MG HCl - 00 AM Tablet Oral Tablet 20 MG EDT ORAL Tablet Methylpheni Methyl ORAL complet Methyl phenid phenid 2017 Table ed ate HCl - 20 [facility] Hydro[facility] ate 12:00: t MG ORAL Hos pital de 20 MG HCl - 00 AM Tablet Oral Tablet 20 MG EDT ORAL Tablet Toradol UNK 09/28/ active as directed e CW2 (Open (ketorolac) 2017 Door 30mg/mL 12:00: Family 00 AM Medical EDT Center) Toradol UNK 09/28/ active as directed e CW2 (Open (ketorolac) 2018 Door 30mg/mL 12:00: Family 00 AM Medical EDT Center) Methylpheni Methyl ORAL complet Methyl phenid phenid 2017 Table ed ate HCl - 20 [facility] Hydrochlor[facility] ate 12:00: t MG ORAL Hos pital de 20 MG HCl - 00 AM Tablet Oral Tablet 20 MG EDT ORAL Tablet Guanfacine guanFA ORAL complet guanFAC [facility]E [facility] 1 MG Oral CINE 2017 Table ed HCl - 1 MG Jostin cents Tablet HCl - 12:00: t ORAL Tablet Hos pital 1 MG 00 AM ORAL EDT Tablet atorvastati atorva 08/12/ active 1 tab(s ) eCW2 (Open n 20 MG statin 2018 Door Oral Tablet 20 mg 12:00: Famil y atorvastati 00 AM Medical n 20 mg EDT Center) atorvastati atorva 08/12/ active 1 tab(s ) eCW2 (Open n 20 MG statin 2018 Door Oral Tablet 20 mg 12:00: Famil y atorvastati 00 AM Medical n 20 mg EDT Center) atorvastati atorva 08/12/ active 1 tab(s ) eCW2 (Open n 20 MG statin 2018 Door Oral Tablet 20 mg 12:00: Famil y atorvastati 00 AM Medical n 20 mg EDT Center) atorvastati atorva 08/12/ active 1 tab(s ) eCW2 (Open n 20 MG statin 2018 Door Oral Tablet 20 mg 12:00: Famil y atorvastati 00 AM Medical n 20 mg EDT Center) atorvastati atorva 08/12/ active 1 tab(s ) eCW2 (Open n 20 MG statin 2018 Door Oral Tablet 20 mg 12:00: Famil y atorvastati 00 AM Medical n 20 mg EDT Center) atorvastati atorva 08/12/ active 1 tab(s ) eCW2 (Open n 20 MG statin 2018 Door Oral Tablet 20 mg 12:00: Famil y atorvastati 00 AM Medical n 20 mg EDT Center) atorvastati atorva 08/12/ active 1 tab(s ) eCW2 (Open n 20 MG statin 2018 Door Oral Tablet 20 mg 12:00: Famil y atorvastati 00 AM Medical n 20 mg EDT Center) atorvastati atorva 08/12/ active 1 tab(s ) eCW2 (Open n 20 MG statin 2018 Door Oral Tablet 20 mg 12:00: Famil y atorvastati 00 AM Medical n 20 mg EDT Center) atorvastati atorva 08/12/ active 1 tab(s ) eCW2 (Open n 20 MG statin 2018 Door Oral Tablet 20 mg 12:00: Famil y atorvastati 00 AM Medical n 20 mg EDT Center) atorvastati atorva 08/12/ active 1 tab(s ) eCW2 (Open n 20 MG statin 2018 Door Oral Tablet 20 mg 12:00: Famil y atorvastati 00 AM Medical n 20 mg EDT Center) atorvastati Atorva 08/05/ active 1 tab(s ) eCW2 (Open n 20 MG statin 2018 Door Oral Tablet Calciu 12:00: Fami ly Atorvastati m 20 00 AM Medical n Calcium mg EST Center) 20 mg atorvastati Atorva 08/05/ active 1 tab(s ) eCW2 (Open n 20 MG statin 2018 Door Oral Tablet Calciu 12:00: Fami ly Atorvastati m 20 00 AM Medical n Calcium mg EST [facility]) 20 mg Losartan Cozaar 08/05/ active 1 tabs eCW 2 (Open Potassium 25 mg 2018 Door 25 MG Oral 12:00: Family Tablet 00 AM [facility]) Cozaar 25 mg Losartan Cozaar 08/05/ active 1 tabs eCW 2 (Open Potassium 25 mg 2018 Door 25 MG Oral 12:00: Family Tablet 00 AM [facility] [[facility]) Cozaar 25 mg Losartan Cozaar 08/05/ active 1 tabs eCW 2 (Open Potassium 25 mg 2018 Door 25 MG Oral 12:00: Family Tablet 00 AM [facility] [[facility]) Cozaar 25 mg atorvastati Atorva 08/05/ active 1 tab(s ) eCW2 (Open n 20 MG statin 2018 Door Oral Tablet Calciu 12:00: Fami ly Atorvastati m 20 00 AM Medical n Calcium mg EST Center) 20 mg atorvastati Atorva 08/05/ active 1 tab(s ) eCW2 (Open n 20 MG statin 2018 Door Oral Tablet Calciu 12:00: Fami ly Atorvastati m 20 00 AM [facility] n Calcium mg EST [facility]) 20 mg Losartan Cozaar 08/05/ active 1 tabs eCW 2 (Open Potassium 25 mg 2018 Door 25 MG Oral 12:00: Family Tablet 00 AM [facility] [[facility]) Cozaar 25 mg Losartan Cozaar 08/05/ active 1 tabs eCW 2 (Open Potassium 25 mg 2018 Door 25 MG Oral 12:00: Family Tablet 00 AM Medical [[facility]) Cozaar 25 mg Losartan Cozaar 08/05/ active 1 tabs eCW 2 (Open Potassium 25 mg 2018 Door 25 MG Oral 12:00: Family Tablet 00 AM Medical [[facility]] [facility]) Cozaar 25 mg Losartan Cozaar 08/05/ active 1 tabs eCW 2 (Open Potassium 25 mg 2018 Door 25 MG Oral 12:00: Family Tablet 00 AM Medical [[facility]] [facility]) Cozaar 25 mg Losartan Cozaar 08/05/ active 1 tabs eCW 2 (Open Potassium 25 mg 2018 Door 25 MG Oral 12:00: Family Tablet 00 AM [facility] [[facility]] EST [facility]) Cozaar 25 mg Losartan Cozaar 08/05/ active 1 tabs eCW 2 (Open Potassium 25 mg 2018 Door 25 MG Oral 12:00: Family Tablet 00 AM [facility] [[facility]] [facility]) Cozaar 25 mg Losartan Cozaar 08/05/ active 1 tabs eCW 2 (Open Potassium 25 mg 2018 Door 25 MG Oral 12:00: Family Tablet 00 AM Medical [[facility]] [facility]) Cozaar 25 mg Methylpheni Methyl ORAL complet Methyl phenid [facility] phenid 2017 Table ed ate HCl - 20 [facility] Hydrochlori ate 12:00: t MG ORAL Hos pital de 20 MG HCl - 00 AM Tablet Oral Tablet 20 MG EST ORAL Tablet Methylpheni Methyl ORAL complet Methyl phenid [facility] phenid 2017 Table ed ate HCl - 20 [facility] Hydrochlori ate 12:00: t MG ORAL Hos pital de 20 MG HCl - 00 AM Tablet Oral Tablet 20 MG EST ORAL Tablet Guanfacine guanFA ORAL complet guanFAC INE [facility] 1 MG Oral CINE 2017 Table ed HCl - 1 MG Jostin cents Tablet HCl - 12:00: t ORAL Tablet Hos pital 1 MG 00 AM ORAL EST Tablet Methylpheni Methyl ORAL complet Methyl phenid [facility] phenid 2016 Table ed ate HCl - 20 [facility] Hydrochlori ate 12:00: t MG ORAL Hos pital de 20 MG HCl - 00 AM Tablet Oral Tablet 20 MG EST ORAL Tablet Guanfacine guanFA ORAL complet guanFAC INE [facility] 1 MG Oral CINE 2016 Table ed HCl - 1 MG Jostin cents Tablet HCl - 12:00: t ORAL Tablet Hos pital 1 MG 00 AM ORAL EDT Tablet Methotrexat methot active 7 tabs eC W2 (Open e 2.5 MG rexate Door Oral Tablet 2.5 mg Family methotrexat Medical e 2.5 mg Center) 0.8 ML Humira active 0.8 mL eCW2 (O pen adalimumab 40 Door 50 MG/ML mg/0.8 Family Prefilled mL Medical Syringe Center) [Humira] Humira 40 mg/0.8 mL 7 ACTUAT Anoro active 1 puff(s) eCW 2 (Open umeclidiniu Ellipt Door m 0.0625 a 62.5 Family MG/ACTUAT / mcg-25 Medica l vilanterol mcg/in Center) 0.025 h MG/ACTUAT Dry Powder Inhaler [Anoro] Anoro Ellipta 62.5 mcg-25 mcg/inh 7 ACTUAT Anoro active 1 puff(s) eCW 2 (Open umeclidiniu Ellipt Door m 0.0625 a 62.5 Family MG/ACTUAT / mcg-25 Medica l vilanterol mcg/in Center) 0.025 h MG/ACTUAT Dry Powder Inhaler [Anoro] Anoro Ellipta 62.5 mcg-25 mcg/inh Folic Acid folic active 1 tab(s) eC W2 (Open 1 MG Oral acid 1 Door Tablet mg [facility] folic acid Medical 1 mg [facility]) Unknown complet eCW2 (Ope n Medications ed Door [facility]) Unknown complet eCW2 (Ope n Medications ed Door [facility]) Methotrexat methot active 7 tabs eC W2 (Open e 2.5 MG rexate Door Oral Tablet 2.5 mg [facility] methotrexat Medical e 2.5 mg [facility]) 200 ACTUAT ProAir active 2 puff(s) eCW2 (Open Albuterol HFA Door 0.09 CFC Family MG/ACTUAT free Medical Metered 90 [facility]) Dose mcg/in Inhaler h [ProAir] ProAir HFA CFC free 90 mcg/inh 200 ACTUAT ProAir active 2 puff(s) eCW2 (Open Albuterol HFA Door 0.09 CFC Family MG/ACTUAT free Medical Metered 90 [facility]) Dose mcg/in Inhaler h [ProAir] ProAir HFA CFC free 90 mcg/inh cetirizine Zyrtec active 1 tab(s) e CW2 (Open hydrochlori 10 mg Door de 10 MG Family Oral Tablet Medical [Zyrtec] [facility]) Zyrtec 10 mg Unknown complet eCW2 (Ope n Medications ed Door [facility]) Artificial Artifi active 1 gtt eCW2 (Open Tears cial Door preserved Tears [facility] cori Center) bimatoprost Lumiga active 1 gtt eCW 2 (Open 0.1 MG/ML n Door Ophthalmic 0.01% Family [facility] Medical [Lumigan] Center) Lumigan 0.01% Propranolol Propra active eCW2 (Open Hydrochlori nolol Door de 10 MG Hydroc Family Oral Tablet hlorid Medica l Propranolol e 10 Center) Hydrochlori mg de 10 mg Aspirin 81 aspiri active 1 tab(s) e CW2 (Open MG Chewable n 81 Door Tablet mg Family aspirin 81 Medical mg Center) Folic Acid folic active 1 tab(s) eC W2 (Open 1 MG Oral acid 1 Door Tablet mg Family folic acid Medical 1 mg Center) Propranolol Propra active eCW2 (Open Hydrochlori nolol Door de 10 MG Hydroc Family Oral Tablet hlorid Medica l Propranolol e 10 Center) Hydrochlori mg de 10 mg 0.8 ML Humira active 0.8 mL eCW2 (O pen adalimumab 40 Door 50 MG/ML mg/0.8 Family Prefilled mL [facility]) [Humira] Humira 40 mg/0.8 mL 0.8 ML Humira active 0.8 mL eCW2 (O pen adalimumab 40 Door 50 MG/ML mg/0.8 Family Prefilled mL [facility]) [Humira] Humira 40 mg/0.8 mL 200 ACTUAT ProAir active 2 puff(s) eCW2 (Open Albuterol HFA Door 0.09 CFC Family MG/ACTUAT free Medical Metered 90 Pace) Dose mcg/in Inhaler h [ProAir] ProAir HFA CFC free 90 mcg/inh Mucinex 600 Mucine active 1 tab(s) eCW2 (Open mg x 600 Door mg [facility] Medical Pace) Methotrexat methot active 7 tabs eC W2 (Open e 2.5 MG rexate Door Oral Tablet 2.5 mg Family methotrexat Medical e 2.5 mg Pace) cetirizine Zyrtec active 1 tab(s) e CW2 (Open hydrochlori 10 mg Door de 10 MG Family Oral Tablet Medical [Zyrtec] Pace) Zyrtec 10 mg cetirizine Zyrtec active 1 tab(s) e CW2 (Open hydrochlori 10 mg Door de 10 MG Family Oral Tablet Medical [Zyrtec] Pace) Zyrtec 10 mg Methylpheni Ritali active 1 tab(s) eCW2 (Open date n 20 Door Hydrochlori mg Family de 20 MG Medical Oral Tablet Pace) [Ritalin] Ritalin 20 mg Mucinex 600 Mucine active 1 tab(s) eCW2 (Open mg x 600 Door mg [facility]) 7 ACTUAT Anoro active 1 puff(s) eCW 2 (Open umeclidiniu Ellipt Door m 0.0625 a 62.5 Family MG/ACTUAT / mcg-25 Medica l vilanterol mcg/in Center) 0.025 h MG/ACTUAT Dry Powder Inhaler [Anoro] Anoro Ellipta 62.5 mcg-25 mcg/inh Aspirin 81 aspiri active 1 tab(s) e CW2 (Open MG Chewable n 81 Door Tablet mg Family aspirin 81 Medical mg Center) Methotrexat methot active 7 tabs eC W2 (Open e 2.5 MG rexate Door Oral Tablet 2.5 mg Family methotrexat Medical e 2.5 mg Pace) 200 ACTUAT ProAir active 2 puff(s) eCW2 (Open Albuterol HFA Door 0.09 CFC Family MG/ACTUAT free Medical Metered 90 Pace) Dose mcg/in Inhaler h [ProAir] ProAir HFA CFC free 90 mcg/inh 200 ACTUAT ProAir active 2 puff(s) eCW2 (Open Albuterol HFA Door 0.09 CFC Family MG/ACTUAT free Medical Metered 90 Pace) Dose mcg/in Inhaler h [ProAir] ProAir HFA CFC free 90 mcg/inh Methylpheni Ritali active 1 tab(s) eCW2 (Open date n 20 Door Hydrochlori mg Family de 20 MG Medical Oral Tablet Center) [Ritalin] Ritalin 20 mg bimatoprost Lumiga suspend 1 gtt eC W2 (Open 0.1 MG/ML n ed Door Ophthalmic 0.01% [facility] Solution [facility] [[facility]] Pace) Lumigan 0.01% Methotrexat methot active 7 tabs eC W2 (Open e 2.5 MG rexate Door Oral Tablet 2.5 mg Family methotrexat Medical e 2.5 mg Pace) bimatoprost Lumiga suspend 1 gtt eC W2 (Open 0.1 MG/ML n ed Door Ophthalmic 0.01% [facility] Solution [facility] [[facility]] Pace) Lumigan 0.01% 0.8 ML Humira active 0.8 mL eCW2 (O pen adalimumab 40 Door 50 MG/ML mg/0.8 Family Prefilled mL [facility]) [Humira] Humira 40 mg/0.8 mL Flonase 50 Flonas active 1 spray(s) eCW2 (Open mcg/inh e 50 Door mcg/in [facility] Medical Pace) Folic Acid folic active 1 tab(s) eC W2 (Open 1 MG Oral acid 1 Door Tablet mg [facility] folic acid Medical 1 mg Pace) Aspirin 81 aspiri active 1 tab(s) e CW2 (Open MG Chewable n 81 Door Tablet mg Family aspirin 81 Medical mg Pace) Aspirin 81 aspiri active 1 tab(s) e CW2 (Open MG Chewable n 81 Door Tablet mg [facility] aspirin 81 Medical mg Pace) Folic Acid folic active 1 tab(s) eC W2 (Open 1 MG Oral acid 1 Door Tablet mg [facility] folic acid Medical 1 mg Pace) 200 ACTUAT ProAir active 2 puff(s) eCW2 (Open Albuterol HFA Door 0.09 CFC Family MG/ACTUAT free Medical Metered 90 Pace) Dose mcg/in Inhaler h [ProAir] ProAir HFA CFC free 90 mcg/inh Flonase 50 Flonas active 1 spray(s) eCW2 (Open mcg/inh e 50 Door mcg/in [facility] Medical Pace) 0.8 ML Humira active 0.8 mL eCW2 (O pen adalimumab 40 Door 50 MG/ML mg/0.8 Family Prefilled mL [facility]) [Humira] Humira 40 mg/0.8 mL bimatoprost Lumiga active 1 gtt eCW 2 (Open 0.1 MG/ML n Door Ophthalmic 0.01% Family Solution Medical [[place]] Pace) Lumigan 0.01% cetirizine Zyrtec active 1 tab(s) e CW2 (Open hydrochlori 10 mg Door de 10 MG Family Oral Tablet Medical [Zyrtec] Center) Zyrtec 10 mg 7 ACTUAT Anoro active 1 puff(s) eCW 2 (Open umeclidiniu Ellipt Door m 0.0625 a 62.5 Family MG/ACTUAT / mcg-25 Medica l vilanterol mcg/in Pace) 0.025 h MG/ACTUAT Dry Powder Inhaler [Anoro] Anoro Ellipta 62.5 mcg-25 mcg/inh Guanfacine guanfa active 1 tab(s) e CW2 (Open 1 MG Oral cine 1 Door Tablet mg [facility] guanfacine Medical 1 mg Pace) Propranolol Propra active eCW2 (Open Hydrochlori nolol Door de 10 MG Hydroc Family Oral Tablet hlorid Medica l Propranolol e 10 Center) Hydrochlori mg de 10 mg bimatoprost Lumiga suspend 1 gtt eC W2 (Open 0.1 MG/ML n ed Door Ophthalmic 0.01% [facility] [[facility]] Pace) Lumigan 0.01% Flonase 50 Flonas active 1 spray(s) eCW2 (Open mcg/inh e 50 Door mcg/in [facility] h Medical Pace) Propranolol Propra active eCW2 (Open Hydrochlori nolol Door de 10 MG Hydroc Family Oral Tablet hlorid Medica l Propranolol e 10 Center) Hydrochlori mg de 10 mg Guanfacine guanfa active 1 tab(s) e CW2 (Open 1 MG Oral cine 1 Door Tablet mg [facility] guanfacine Medical 1 mg Pace) bimatoprost Lumiga suspend 1 gtt eC W2 (Open 0.1 MG/ML n ed Door Ophthalmic 0.01% [facility] [[facility]] Pace) Lumigan 0.01% Guanfacine guanfa active 1 tab(s) e CW2 (Open 1 MG Oral cine 1 Door Tablet mg [facility] guanfacine Medical 1 mg Pace) Methotrexat methot active 7 tabs eC W2 (Open e 2.5 MG rexate Door Oral Tablet 2.5 mg [facility] methotrexat Medical e 2.5 mg Pace) 0.8 ML Humira active 0.8 mL eCW2 (O pen adalimumab 40 Door 50 MG/ML mg/0.8 Family Prefilled mL [facility]) [Humira] Humira 40 mg/0.8 mL bimatoprost Lumiga active 1 gtt eCW 2 (Open 0.1 MG/ML n Door Ophthalmic 0.01% [facility] [[facility]] Pace) Lumigan 0.01% bimatoprost Lumiga suspend 1 gtt eC W2 (Open 0.1 MG/ML n ed Door Ophthalmic 0.01% [facility] [[facility]] Pace) Lumigan 0.01% Propranolol Propra active eCW2 (Open Hydrochlori nolol Door de 10 MG Hydroc Family Oral Tablet hlorid Medica l Propranolol e 10 Center) Hydrochlori mg de 10 mg Aspirin 81 aspiri active 1 tab(s) e CW2 (Open MG Chewable n 81 Door Tablet mg Family aspirin 81 Medical mg Pace) Mucinex 600 Mucine active 1 tab(s) eCW2 (Open mg x 600 Door mg [facility]) Guanfacine guanfa active 1 tab(s) e CW2 (Open 1 MG Oral cine 1 Door Tablet mg [facility] guanfacine Medical 1 mg Pace) Folic Acid folic active 1 tab(s) eC W2 (Open 1 MG Oral acid 1 Door Tablet mg [facility] folic acid Medical 1 mg Pace) Flonase 50 Flonas active 1 spray(s) eCW2 (Open mcg/inh e 50 Door mcg/in [facility]) Artificial Artifi suspend 1 gtt eCW 2 (Open Tears cial ed Door preserved Tears [facility]) Artificial Artifi suspend 1 gtt eCW 2 (Open Tears cial ed Door preserved Tears [facility]) Artificial Artifi active 1 gtt eCW2 (Open Tears cial Door preserved Tears [facility]) 7 ACTUAT Anoro active 1 puff(s) eCW 2 (Open umeclidiniu Ellipt Door m 0.0625 a 62.5 Family MG/ACTUAT / mcg-25 Medica l vilanterol mcg/in Pace) 0.025 h MG/ACTUAT Dry Powder Inhaler [Anoro] Anoro Ellipta 62.5 mcg-25 mcg/inh Methotrexat methot active 7 tabs eC W2 (Open e 2.5 MG rexate Door Oral Tablet 2.5 mg [facility] methotrexat Medical e 2.5 mg Pace) Methylpheni Ritali active 1 tab(s) eCW2 (Open date n 20 Door Hydrochlori mg [facility] de 20 MG Medical Oral Tablet Pace) [Ritalin] Ritalin 20 mg Guanfacine guanfa active 1 tab(s) e CW2 (Open 1 MG Oral cine 1 Door Tablet mg [facility] guanfacine Medical 1 mg Pace) 7 ACTUAT Anoro active 1 puff(s) eCW 2 (Open umeclidiniu Ellipt Door m 0.0625 a 62.5 Family MG/ACTUAT / mcg-25 Medica l vilanterol mcg/in Pace) 0.025 h MG/ACTUAT Dry Powder Inhaler [Anoro] Anoro Ellipta 62.5 mcg-25 mcg/inh Aspirin 81 aspiri active 1 tab(s) e CW2 (Open MG Chewable n 81 Door Tablet mg [facility] aspirin 81 Medical mg Pace) 7 ACTUAT Anoro active 1 puff(s) eCW 2 (Open umeclidiniu Ellipt Door m 0.0625 a 62.5 Family MG/ACTUAT / mcg-25 Medica l vilanterol mcg/in Center) 0.025 h MG/ACTUAT Dry Powder Inhaler [Anoro] Anoro Ellipta 62.5 mcg-25 mcg/inh Flonase 50 Flonas active 1 spray(s) eCW2 (Open mcg/inh e 50 Door mcg/in [facility] Medical Pace) Folic Acid folic active 1 tab(s) eC W2 (Open 1 MG Oral acid 1 Door Tablet mg [facility] folic acid Medical 1 mg Pace) 200 ACTUAT ProAir active 2 puff(s) eCW2 (Open Albuterol HFA Door 0.09 CFC Family MG/ACTUAT free Medical Metered 90 Pace) Dose mcg/in Inhaler h [ProAir] ProAir HFA CFC free 90 mcg/inh Unknown complet eCW2 (Ope n Medications ed Door [facility]) Mucinex 600 Mucine active 1 tab(s) eCW2 (Open mg x 600 Door mg [facility]) Aspirin 81 aspiri active 1 tab(s) e CW2 (Open MG Chewable n 81 Door Tablet mg [facility] aspirin 81 Medical mg Pace) Artificial Artifi active 1 gtt eCW2 (Open Tears cial Door preserved Tears [facility] cori Pace) 200 ACTUAT ProAir active 2 puff(s) eCW2 (Open Albuterol HFA Door 0.09 CFC Family MG/ACTUAT free Medical Metered 90 Pace) Dose mcg/in Inhaler h [ProAir] ProAir HFA CFC free 90 mcg/inh Humira 40 UNK active 0.8 mL eCW2 ( Open mg/0.8 mL Door [facility]) 7 ACTUAT Anoro active 1 puff(s) eCW 2 (Open umeclidiniu Ellipt Door m 0.0625 a 62.5 Family MG/ACTUAT / mcg-25 Medica l vilanterol mcg/in Center) 0.025 h MG/ACTUAT Dry Powder Inhaler [Anoro] Anoro Ellipta 62.5 mcg-25 mcg/inh Propranolol Propra active eCW2 (Open Hydrochlori nolol Door de 10 MG Hydroc Family Oral Tablet hlorid Medica l Propranolol e 10 Center) Hydrochlori mg de 10 mg 200 ACTUAT ProAir active 2 puff(s) eCW2 (Open Albuterol HFA Door 0.09 CFC Family MG/ACTUAT free Medical Metered 90 Center) Dose mcg/in Inhaler h [ProAir] ProAir HFA CFC free 90 mcg/inh Artificial Artifi suspend 1 gtt eCW 2 (Open Tears cial ed Door preserved Tears [facility] Medical cori Pace) Polyvinyl Artifi active 1 gtt eCW2 (Open Alcohol cial Door 0.014 ML/ML Tears [facility] Ophthalmic pres Medical Solution cori Pace) Artificial Tears preserved Folic Acid folic active 1 tab(s) eC W2 (Open 1 MG Oral acid 1 Door Tablet mg Family folic acid Medical 1 mg Pace) bimatoprost Lumiga suspend 1 gtt eC W2 (Open 0.1 MG/ML n ed Door Ophthalmic 0.01% [facility] Solution Medical [[place]] Pace) Lumigan 0.01% Methotrexat methot active 7 tabs eC W2 (Open e 2.5 MG rexate Door Oral Tablet 2.5 mg Family methotrexat Medical e 2.5 mg Pace) Flonase 50 Flonas active 1 spray(s) eCW2 (Open mcg/inh e 50 Door mcg/in Family h Medical Center) 0.8 ML Humira active 0.8 mL eCW2 (O pen adalimumab 40 Door 50 MG/ML mg/0.8 Family Prefilled mL [facility]) [Humira] Humira 40 mg/0.8 mL Methylpheni Ritali active 1 tab(s) eCW2 (Open date n 20 Door Hydrochlori mg Family de 20 MG Medical Oral Tablet Center) [Ritalin] Ritalin 20 mg Mucinex 600 Mucine active 1 tab(s) eCW2 (Open mg x 600 Door mg Family Medical Pace) Methotrexat methot active 7 tabs eC W2 (Open e 2.5 MG rexate Door Oral Tablet 2.5 mg Family methotrexat Medical e 2.5 mg Pace) bimatoprost Lumiga suspend 1 gtt eC W2 (Open 0.1 MG/ML n ed Door Ophthalmic 0.01% Family Solution Medical [[place]] Pace) Lumigan 0.01% Guanfacine guanfa active 1 tab(s) e CW2 (Open 1 MG Oral cine 1 Door Tablet mg Family guanfacine Medical 1 mg Center) Methotrexat methot active 7 tabs eC W2 (Open e 2.5 MG rexate Door Oral Tablet 2.5 mg Family methotrexat Medical e 2.5 mg Center) Flonase 50 Flonas active 1 spray(s) eCW2 (Open mcg/inh e 50 Door mcg/in [facility] h [facility]) bimatoprost Lumiga suspend 1 gtt eC W2 (Open 0.1 MG/ML n ed Door Ophthalmic 0.01% [facility] Solution Medical [[place]] Center) Lumigan 0.01% Methylpheni Ritali active 1 tab(s) eCW2 (Open date n 20 Door Hydrochlori mg Family de 20 MG Medical Oral Tablet Center) [Ritalin] Ritalin 20 mg Folic Acid folic active 1 tab(s) eC W2 (Open 1 MG Oral acid 1 Door Tablet mg Family folic acid Medical 1 mg Pace) Methylpheni Ritali active 1 tab(s) eCW2 (Open date n 20 Door Hydrochlori mg Family de 20 MG Medical Oral Tablet Pace) [Ritalin] Ritalin 20 mg 0.8 ML Humira active 0.8 mL eCW2 (O pen adalimumab 40 Door 50 MG/ML mg/0.8 Family Prefilled mL [facility] Syringe [facility]) [Humira] Humira 40 mg/0.8 mL Unknown complet eCW2 (Ope n Medications ed Door [facility]) Mucinex 600 Mucine active 1 tab(s) eCW2 (Open mg x 600 Door mg [facility]) Propranolol Propra active eCW2 (Open Hydrochlori nolol Door de 10 MG Hydroc Family Oral Tablet hlorid Medica l Propranolol e 10 Center) Hydrochlori mg de 10 mg Folic Acid folic active 1 tab(s) eC W2 (Open 1 MG Oral acid 1 Door Tablet mg Family folic acid Medical 1 mg Pace) Guanfacine guanfa active 1 tab(s) e CW2 (Open 1 MG Oral cine 1 Door Tablet mg Family guanfacine Medical 1 mg Center) Flonase 50 Flonas active 1 spray(s) eCW2 (Open mcg/inh e 50 Door mcg/in [facility] h Medical Pace) 0.8 ML Humira active 0.8 mL eCW2 (O pen adalimumab 40 Door 50 MG/ML mg/0.8 Family Prefilled mL [facility] Syringe Center) [Humira] Humira 40 mg/0.8 mL Flonase 50 Flonas active 1 spray(s) eCW2 (Open mcg/inh e 50 Door mcg/in Family h Medical Center) 7 ACTUAT Anoro active 1 puff(s) eCW 2 (Open umeclidiniu Ellipt Door m 0.0625 a 62.5 Family MG/ACTUAT / mcg-25 Medica l vilanterol mcg/in Center) 0.025 h MG/ACTUAT Dry Powder Inhaler [Anoro] Anoro Ellipta 62.5 mcg-25 mcg/inh cetirizine Zyrtec active 1 tab(s) e CW2 (Open hydrochlori 10 mg Door de 10 MG Family Oral Tablet Medical [Zyrtec] Pace) Zyrtec 10 mg Methotrexat methot active 7 tabs eC W2 (Open e 2.5 MG rexate Door Oral Tablet 2.5 mg Family methotrexat Medical e 2.5 mg Center) Artificial Artifi suspend 1 gtt eCW 2 (Open Tears cial ed Door preserved Tears [facility] cori Center) 0.8 ML Humira active 0.8 mL eCW2 (O pen adalimumab 40 Door 50 MG/ML mg/0.8 Family Prefilled mL Medical Syringe Center) [Humira] Humira 40 mg/0.8 mL cetirizine Zyrtec active 1 tab(s) e CW2 (Open hydrochlori 10 mg Door de 10 MG Family Oral Tablet Medical [Zyrtec] Pace) Zyrtec 10 mg Propranolol Propra active eCW2 (Open Hydrochlori nolol Door de 10 MG Hydroc Family Oral Tablet hlorid Medica l Propranolol e 10 Center) Hydrochlori mg de 10 mg Methylpheni Ritali active 1 tab(s) eCW2 (Open date n 20 Door Hydrochlori mg Family de 20 MG Medical Oral Tablet Pace) [Ritalin] Ritalin 20 mg Mucinex 600 Mucine active 1 tab(s) eCW2 (Open mg x 600 Door mg [facility] Medical Pace) cetirizine Zyrtec active 1 tab(s) e CW2 (Open hydrochlori 10 mg Door de 10 MG Family Oral Tablet Medical [Zyrtec] Pace) Zyrtec 10 mg cetirizine Zyrtec active 1 tab(s) e CW2 (Open hydrochlori 10 mg Door de 10 MG Family Oral Tablet Medical [[facility]] Pace) Zyrtec 10 mg 0.8 ML Humira active 0.8 mL eCW2 (O pen adalimumab 40 Door 50 MG/ML mg/0.8 Family Prefilled mL Medical Syringe Center) [Humira] Humira 40 mg/0.8 mL Mucinex 600 Mucine active 1 tab(s) eCW2 (Open mg x 600 Door mg [facility]) cetirizine Zyrtec active 1 tab(s) e CW2 (Open hydrochlori 10 mg Door de 10 MG Family Oral Tablet Medical [yrte] Pace) Zyrtec 10 mg Methylpheni Ritali active 1 tab(s) eCW2 (Open date n 20 Door Hydrochlori mg Family de 20 MG Medical Oral Tablet Pace) [Ritalin] Ritalin 20 mg Guanfacine guanfa active 1 tab(s) e CW2 (Open 1 MG Oral cine 1 Door Tablet mg Family guanfacine Medical 1 mg Center) Polyvinyl Artifi active 1 gtt eCW2 (Open Alcohol cial Door 0.014 ML/ML Tears [facility] Ophthalmic pres Medical Solution cori Center) Artificial Tears preserved Mucinex 600 Mucine active 1 tab(s) eCW2 (Open mg x 600 Door mg [facility]) Flonase 50 Flonas active 1 spray(s) eCW2 (Open mcg/inh e 50 Door mcg/in [facility] h Medical Pace) cetirizine Zyrtec active 1 tab(s) e CW2 (Open hydrochlori 10 mg Door de 10 MG Family Oral Tablet Medical [[facility]] Pace) Zyrtec 10 mg Methylpheni Ritali active 1 tab(s) eCW2 (Open date n 20 Door Hydrochlori mg Family de 20 MG Medical Oral Tablet Pace) [Ritalin] Ritalin 20 mg 200 ACTUAT ProAir active 2 puff(s) eCW2 (Open Albuterol HFA Door 0.09 CFC Family MG/ACTUAT free Medical Metered 90 Pace) Dose mcg/in Inhaler h [ProAir] ProAir HFA CFC free 90 mcg/inh Folic Acid folic active 1 tab(s) eC W2 (Open 1 MG Oral acid 1 Door Tablet mg [facility] folic acid Medical 1 mg Pace) Methylpheni Ritali active 1 tab(s) eCW2 (Open date n 20 Door Hydrochlori mg Family de 20 MG Medical Oral Tablet Center) [Ritalin] Ritalin 20 mg 7 ACTUAT Anoro active 1 puff(s) eCW 2 (Open umeclidiniu Ellipt Door m 0.0625 a 62.5 Family MG/ACTUAT / mcg-25 Medica l vilanterol mcg/in Center) 0.025 h MG/ACTUAT Dry Powder Inhaler [Anoro] Anoro Ellipta 62.5 mcg-25 mcg/inh cetirizine Zyrtec active 1 tab(s) e CW2 (Open hydrochlori 10 mg Door de 10 MG Family Oral Tablet Medical [Zyrtec] Pace) Zyrtec 10 mg Guanfacine guanfa active 1 tab(s) e CW2 (Open 1 MG Oral cine 1 Door Tablet mg Family guanfacine Medical 1 mg Pace) Aspirin 81 aspiri active 1 tab(s) e CW2 (Open MG Chewable n 81 Door Tablet mg Family aspirin 81 Medical mg Pace) Mucinex 600 Mucine active 1 tab(s) eCW2 (Open mg x 600 Door mg [facility]) Artificial Artifi active 1 gtt eCW2 (Open Tears cial Door preserved Tears [facility] cori Pace) Aspirin 81 aspiri active 1 tab(s) e CW2 (Open MG Chewable n 81 Door Tablet mg Family aspirin 81 Medical mg Pace) Aspirin 81 aspiri active 1 tab(s) e CW2 (Open MG Chewable n 81 Door Tablet mg Family aspirin 81 Medical mg Pace) Guanfacine guanfa active 1 tab(s) e CW2 (Open 1 MG Oral cine 1 Door Tablet mg Family guanfacine Medical 1 mg Pace) Insurance Providers Payer name Policy type Policy ID Covered Covered republican's Policy P lisette / Coverage republican ID relationship to [place] Inf ormation type [place] MED[place] [id number] SP [id number] TEJINDER [id number] SP [id number] MEDICARE ADV PLAN MEDICARE [id number] FIDL [place] [id number] Care PR Medicare MDCR Medicare [id number] 1 [id number] Part B Par Providers MEDICARE [id number] Self [id number] SELF PAY [id number] Self [id number] MEDICAID OP [id number] Self [id number] TEJINDER [id number] Self [id number] MEDICARE ADV MEDICARE [id number] Self [id number] A MEDICAID [id number] Problems, Conditions, and Diagnoses Code Display Name Description Problem Type Effective Data Sour ce(s) Dates D72.1 Eosinophilia Eosinophilia Problem 04/26/2018 eCW2 (Open Door 12:00:00 AM Family Medica l EST Center) D75.89 Macrocytosis Macrocytosis Problem 04/26/2018 eCW2 (Open Door 12:00:00 AM Family Medica l EST Center) D75.89 Macrocytosis Macrocytosis Problem 04/26/2018 eCW2 (Open Door 12:00:00 AM Family Medica l EST Center) D72.1 Eosinophilia Eosinophilia Problem 04/26/2018 eCW2 (Open Door 12:00:00 AM Family Medica l EST Center) D75.89 Macrocytosis Macrocytosis Problem 04/26/2018 eCW2 (Open Door 12:00:00 AM Family Medica l EST Center) D72.1 Eosinophilia Eosinophilia Problem 04/26/2018 eCW2 (Open Door 12:00:00 AM Family Medica l EST Center) G62.9 Neuropathy Neuropathy Problem 09/26/2017 eCW2 (Open Doo r 12:00:00 AM Family Medica l EDT Center) G62.9 Neuropathy Neuropathy Problem 09/26/2017 eCW2 (Open Doo r 12:00:00 AM Family Medica l EDT Center) G62.9 Neuropathy Neuropathy Problem 09/26/2017 eCW2 (Open Doo r 12:00:00 AM Family Medica l EDT Center) G62.9 Neuropathy Neuropathy Problem 09/26/2017 eCW2 (Open Doo r 12:00:00 AM Family Medica l EDT Center) F17.200 [id number] Tobacco dependence Problem 04/06/2017 eCW2 ( Open Door 12:00:00 AM Family Medica l EST Center) F17.200 Tobacco dependence Tobacco dependence Problem 7 eCW2 (Open Door 12:00:00 AM Family Medica l EST Center) F17.200 Tobacco dependence Tobacco dependence Problem 7 eCW2 (Open Door 12:00:00 AM Family Medica l EST Center) F17.200 Tobacco dependence Tobacco dependence Problem 7 eCW2 (Open Door 12:00:00 AM [facility] Medica l EST Center) F17.200 Tobacco dependence Tobacco dependence Problem 7 eCW2 (Open Door 12:00:00 AM [facility] Medica l EST Center) Z68.25 BMI BMI Problem 02/02/2017 eCW2 (Open Doo r 25.0-25.9,adult 25.0-25.9,adult 12:00:00 AM [facility] EDT Center) G43.909 [id number] Migraine Problem 12/10/2015 eCW2 (Open Doo r 12:00:00 AM Family Medica l EDT Center) G43.909 Migraine Migraine Problem 12/10/2015 eCW2 (Open Doo r 12:00:00 AM Family Medica l EDT Center) G43.909 Migraine Migraine Problem 12/10/2015 eCW2 (Open Doo r 12:00:00 AM Family Medica l EDT Center) G43.909 Migraine Migraine Problem 12/10/2015 eCW2 (Open Doo r 12:00:00 AM Family Medica l EDT Center) M54.9 [id number] Back pain Problem 10/15/2015 eCW2 (Open Doo r 12:00:00 AM Family Medica l EDT Center) M85.80 [id number] Osteopenia Problem 10/15/2015 eCW2 (Open Doo r 12:00:00 AM Family Medica l EDT Center) M85.80 Osteopenia Osteopenia Problem 10/15/2015 eCW2 (Open Doo r 12:00:00 AM Family Medica l EDT Center) M54.9 Back pain Back pain Problem 10/15/2015 eCW2 (Open Doo r 12:00:00 AM Family Medica l EDT Center) M54.9 Back pain Back pain Problem 10/15/2015 eCW2 (Open Doo r 12:00:00 AM Family Medica l EDT Center) M85.80 Osteopenia Osteopenia Problem 10/15/2015 eCW2 (Open Doo r 12:00:00 AM Family Medica l EDT Center) M85.80 Osteopenia Osteopenia Problem 10/15/2015 eCW2 (Open Doo r 12:00:00 AM [facility]) M54.9 Back pain Back pain Problem 10/15/2015 eCW2 (Open Doo r 12:00:00 AM [facility]) M85.80 Osteopenia Osteopenia Problem 10/15/2015 eCW2 (Open Doo r 12:00:00 AM [facility]) I63.9 [id number] CVA (cerebral Problem 04/10/2015 eCW2 (Open Door vascular accident) 12:00:00 AM [facility]) I63.9 CVA (cerebral CVA (cerebral Problem 04/10/2015 eCW2 (Op en Door vascular accident) vascular accident) 12:00:00 AM [facility]) I63.9 CVA (cerebral CVA (cerebral Problem 04/10/2015 eCW2 (Op en Door vascular accident) vascular accident) 12:00:00 AM [facility]) I63.9 CVA (cerebral CVA (cerebral Problem 04/10/2015 eCW2 (Op en Door vascular accident) vascular accident) 12:00:00 AM [facility]) I63.9 CVA (cerebral CVA (cerebral Problem 04/10/2015 eCW2 (Op en Door vascular accident) vascular accident) 12:00:00 AM [facility]) H40.329 [id number] Ocular Problem 03/31/2015 eCW2 (Open Doo r hypertension, 12:00:00 AM [facility] bilateral [facility]) 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 eCW2 (Open Door 12:00:00 AM [facility]) H04.123 [id number] Dry eye syndrome Problem 03/31/2015 eCW2 (Op en Door of both lacrimal 12:00:00 AM [facility]) I77.9 [id number] Subclavian artery Problem 03/31/2015 eCW2 (O pen Door disease 12:00:00 AM [facility]) I77.9 Subclavian artery Subclavian artery Problem 03/31/2015 eCW2 (Open Door disease disease 12:00:00 AM [facility]) 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/2015 eCW2 ( Open Door 12:00:00 AM Family Medica l EST Center) H04.123 Dry eye syndrome Dry eye syndrome Problem 03/31/2015 eC W2 (Open Door of both lacrimal of both lacrimal 12:00:00 AM [facility] glands glands EST Center) H40.053 Ocular Ocular Problem 03/31/2015 eCW2 (Open Doo r hypertension, hypertension, 12:00:00 AM [facility] Medical bilateral bilateral EST Center) I77.9 Subclavian artery Subclavian artery Problem 03/31/2015 eCW2 (Open Door disease disease 12:00:00 AM [facility] Medica l EST Pace) H40.053 Ocular Ocular Problem 03/31/2015 eCW2 (Open Doo r hypertension, hypertension, 12:00:00 AM [facility] Medical bilateral bilateral EST Pace) H40.053 Ocular Ocular Problem 03/31/2015 eCW2 (Open Do[facility] r hypertension, hypertension, 12:00:00 AM [facility] Medical bilateral bilateral EST Pace) I77.9 Subclavian artery Subclavian artery Problem 03/31/2015 eCW2 (Open [facility] disease disease 12:00:00 AM [facility] Medica l EST Pace) H04.123 Dry eye syndrome Dry eye syndrome Problem 03/31/2015 eC W2 ([facility] of both lacrimal of both lacrimal 12:00:00 AM [facility] glands glands EST Center) I77.9 Subclavian artery Subclavian artery Problem 03/31/2015 eCW2 ([facility] disease disease 12:00:00 AM [facility] Medica l EST Pace) H40.053 Ocular Ocular Problem 03/31/2015 eCW2 (Open Doo r hypertension, hypertension, 12:00:00 AM [facility] Medical bilateral bilateral EST Center) 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/2015 eCW2 ( Open [facility] 12:00:00 AM [facility] Medica l EST Center) H04.123 Dry eye syndrome Dry eye syndrome Problem 03/31/2015 eC W2 ([facility] of both lacrimal of both lacrimal 12:00:00 AM [facility] glands glands EST Center) R76.11 [id number] History of Problem 03/10/2015 eCW2 (Open Do[facility] r positive PPD, 12:00:00 AM Family [facility] ical untreated EDT Center) M06.9 [id number] Rheumatoid Problem 03/10/2015 eCW2 (Open Do[facility] r arthritis 12:00:00 AM [facility] Medica l EDT Center) F90.0 [id number] Attention deficit Problem 03/10/2015 eCW2 (O pen Door disorder of adult 12:00:00 AM [facility] Medical with hyperactivity EDT Center ) J30.2 [id number] Seasonal allergies Problem 03/10/2015 eCW2 ( [facility] 12:00:00 AM [facility] K44.9 [id number] Hiatal hernia Problem 03/10/2015 eCW2 (Open Door 12:00:00 AM [facility] Medica l EDT Center) E78.5 [id number] Hyperlipidemia Problem 03/10/2015 eCW2 ([facility] 12:00:00 AM [facility]) K21.9 [id number] GERD Problem 03/10/2015 eCW2 (Open Doo r (gastroesophageal 12:00:00 AM [facility] Medical reflux disease) EDT Center) I10 [id number] HTN (hypertension) Problem 03/10/2015 eCW2 ( [facility] 12:00:00 AM [facility] Center) J44.9 [id number] COPD (chronic Problem 03/10/2015 eCW2 (Open Door obstructive 12:00:00 AM [facility] Medic al pulmonary disease) EDT Center ) M06.9 Rheumatoid Rheumatoid Problem 03/10/2015 eCW2 (Open Do[facility] r arthritis arthritis 12:00:00 AM [facility] EDT Center) I10 HTN (hypertension) HTN (hypertension) Problem 5 eCW2 (Open [facility] 12:00:00 AM [facility] EDT Center) F90.0 Attention deficit Attention deficit Problem 03/10/2015 eCW2 (Open Door disorder of adult disorder of adult 12:00:00 AM [facility] Medical with hyperactivity with hyperactivity EDT Center) K44.9 Hiatal hernia Hiatal hernia Problem 03/10/2015 eCW2 (Op en Door 12:00:00 AM [facility] Medica l EDT Center) K21.9 GERD GERD Problem 03/10/2015 eCW2 (Open Doo r (gastroesophageal (gastroesophageal 12:00:00 AM Family Medical reflux disease) reflux disease) EDT Cent er) E78.5 Hyperlipidemia Hyperlipidemia Problem 03/10/2015 eCW2 ( [facility] 12:00:00 AM [facility] Center) R76.11 History of History of Problem 03/10/2015 eCW2 (Open Do[facility] r positive PPD, positive PPD, 12:00:00 AM [facility] Medical untreated untreated EDT Center) J30.2 Seasonal allergies Seasonal allergies Problem 5 eCW2 ([facility] 12:00:00 AM [facility] EDT Center) J44.9 COPD (chronic COPD (chronic Problem 03/10/2015 eCW2 (Op en Door obstructive obstructive 12:00:00 AM [facility] pulmonary disease) pulmonary disease) EDT Center) I10 HTN (hypertension) HTN (hypertension) Problem 5 eCW2 (Open [facility] 12:00:00 AM [facility] EDT Center) F90.0 Attention deficit Attention deficit Problem 03/10/2015 eCW2 (Open Door disorder of adult disorder of adult 12:00:00 AM [facility] with hyperactivity with hyperactivity EDT Center) R76.11 History of History of Problem 03/10/2015 eCW2 (Open Do[facility] r positive PPD, positive PPD, 12:00:00 AM [facility] Medical untreated untreated EDT Center) J44.9 COPD (chronic COPD (chronic Problem 03/10/2015 eCW2 (Op en Door obstructive obstructive 12:00:00 AM [facility] day[facility]ara pulmonary disease) pulmonary disease) EDT Center) K21.9 GERD GERD Problem 03/10/2015 eCW2 (Open Doo r (gastroesophageal (gastroesophageal 12:00:00 AM [facility] Medical reflux disease) reflux disease) EDT Cent er) K44.9 Hiatal hernia Hiatal hernia Problem 03/10/2015 eCW2 (Op en Door 12:00:00 AM [facility] Medica l EDT Center) J30.2 Seasonal allergies Seasonal allergies Problem 5 eCW2 ([facility] 12:00:00 AM [facility] EDT Center) J44.9 COPD (chronic COPD (chronic Problem 03/10/2015 eCW2 (Op en Door obstructive obstructive 12:00:00 AM [facility] Medi dayanara pulmonary disease) pulmonary disease) EDT Center) I10 HTN (hypertension) HTN (hypertension) Problem 5 eCW2 (Open Door 12:00:00 AM [facility] Medica l EDT Center) K21.9 GERD GERD Problem 03/10/2015 eCW2 (Open Doo r (gastroesophageal (gastroesophageal 12:00:00 AM Family Medical reflux disease) reflux disease) EDT Cent er) E78.5 Hyperlipidemia Hyperlipidemia Problem 03/10/2015 eCW2 ( Open [facility] 12:00:00 AM [facility] Medica l EDT Center) M06.9 Rheumatoid Rheumatoid Problem 03/10/2015 eCW2 (Open Do[facility] r arthritis arthritis 12:00:00 AM [facility] EDT Center) R76.11 History of History of Problem 03/10/2015 eCW2 (Open Do[facility] r positive PPD, positive PPD, 12:00:00 AM [facility] untreated untreated EDT Center) I10 HTN (hypertension) HTN (hypertension) Problem 5 eCW2 (Open Door 12:00:00 AM [facility] EDT Center) F90.0 Attention deficit Attention deficit Problem 03/10/2015 eCW2 (Open Door disorder of adult disorder of adult 12:00:00 AM [facility] with hyperactivity with hyperactivity EDT Center) R76.11 History of History of Problem 03/10/2015 eCW2 (Open Do[facility] r positive PPD, positive PPD, 12:00:00 AM [facility] Medical untreated untreated EDT Center) K44.9 Hiatal hernia Hiatal hernia Problem 03/10/2015 eCW2 (Op en Door 12:00:00 AM [facility] EDT Center) M06.9 Rheumatoid Rheumatoid Problem 03/10/2015 eCW2 (Open Do[facility] r arthritis arthritis 12:00:00 AM [facility] EDT Center) E78.5 Hyperlipidemia Hyperlipidemia Problem 03/10/2015 eCW2 ( Open [facility] 12:00:00 AM [facility] EDT Center) J44.9 COPD (chronic COPD (chronic Problem 03/10/2015 eCW2 (Op en Door obstructive obstructive 12:00:00 AM [facility] pulmonary disease) pulmonary disease) EDT Center) J30.2 Seasonal allergies Seasonal allergies Problem 5 eCW2 ([facility] 12:00:00 AM [facility] EDT Center) K21.9 GERD GERD Problem 03/10/2015 eCW2 (Open Doo r (gastroesophageal (gastroesophageal 12:00:00 AM Family Medical reflux disease) reflux disease) EDT Cent er) I65.23 Occlusion and OCCLUSION AND Diagnosis 12/19/2019 [facility] stenosis of STENOSIS OF 06:00:00 AM [facility] bilateral carotid BILATERAL CAROTID EDT [facility] arteries [employer] Z91.041 Radiographic dye RADIOGRAPHIC DYE Diagnosis [facility]/31/2019 [facility] allergy status ALLERGY STATUS 06:00:00 AM [facility] Health EDT Care Corporation Z91.09 Other allergy OTH ALLERGY Diagnosis 10/31/2019 [facility] r status, other than STATUS, OTH THAN 06:00:00 AM [facility] to drugs and TO DRUGS AND BIOLG EDT Care biological SUBSTANCES Corporation substances Z88.6 Allergy status to ALLERGY STATUS TO Diagnosis 10/31/2019 [place] analgesic agent ANALGESIC AGENT 06:00:00 AM [facility] status STATUS EDT Care Pax[employer] Z88.8 Allergy status to ALLERGY STATUS TO Diagnosis 10/31/2019 [place] other drugs, OTH DRUG/MEDS/BIOL 06:00:00 AM [facility] Health medicaments and SUBST STATUS EDT [employer] biological Pax8 substances status M05.9 Rheumatoid RHEUMATOID Diagnosis 10/31/2019 [place] arthritis with ARTHRITIS WITH 06:00:00 AM [facility] [employer] rheumatoid factor, RHEUMATOID FACTOR, EDT Care unspecified UNSPECIFIED Corporation Z87.81 Personal history PERSONAL HISTORY Diagnosis 06/20/2019 [place] c[facility]den[place] of (healed) OF (HEALED) 01:56:00 [facility] traumatic fracture TRAUMATIC FRACTURE EST Care [employer]ax[employer] Z87.891 Personal history PERSONAL HISTORY Diagnosis 06/20/2019 [place] c[facility] of nicotine OF NICOTINE 01:56:00 [facility] dependence DEPENDENCE EST Care Pax8 J44.9 Chronic CHRONIC Diagnosis 06/20/2019 [place] obstructive OBSTRUCTIVE 01:56:00 [facility] pulmonary disease, PULMONARY DISEASE, EST Care unspecified UNSPECIFIED Corporation F90.9 Attention-deficit ATTENTION-DEFICIT Diagnosis 06/20/2019 [place] hyperactivity HYPERACTIVITY 01:56:00 [facility] disorder, DISORDER, EST Care unspecified type UNSPECIFIED TYPE Co rporation E78.5 Hyperlipidemia, HYPERLIPIDEMIA, Diagnosis 06/20/2019 [place] unspecified UNSPECIFIED 01:56:00 PM [facility] EST Care Corporation H40.9 Unspecified UNSPECIFIED Diagnosis 06/20/2019 [place] glaucoma GLAUCOMA 01:56:00 PM [facility] EST Care [employer]ax[employer] I10 Essential ESSENTIAL Diagnosis 06/20/2019 [place] (primary) (PRIMARY) 01:56:00 PM [facility] hypertension HYPERTENSION EST Care Pax8 M81.0 Age-related AGE-RELATED Diagnosis 06/20/2019 [place] osteoporosis OSTEOPOROSIS W/O 01:56:00 PM [facility] without current CURRENT EST Care pathological PATHOLOGICAL Corporatio n fracture FRACTURE M85.80 Other specified OTH DISRD OF BONE Diagnosis 03/21/2019 [facility] disorders of bone DENSITY AND 06:00:00 AM [facility] density and STRUCTURE, EDT Care structure, UNSPECIFIED SITE Corporat ion unspecified site M62.838 Other muscle spasm OTHER MUSCLE SPASM Diagnosis 9 [place] 06:00:00 AM [facility] EDT Care Pax8 [phone] MAJOR DEPRESSIVE RECURR DEPR Diagnosis 03/12/[facility] AFFECTIVE DISORDER PSYCHOS-MOD 12:00:00 AM Hosp ital RECURRENT EPISODE EDT MODERATE DEGREE 314.01 ATTENTION DEFICIT ATTN DEFICIT W Diagnosis 03/12/[facility] DISORDER OF HYPERACT 12:00:00 AM Hospital CHILDHOOD WITH EDT HYPERACTIVITY Surgeries/Procedures Procedure Description Date Indications Data Source(s) COMP ORAL EVALUATION 09/27/2018 eCW2 (O pen Door - NEW/EST PT 12:00:00 AM [facility] EDT Center) INTRAORAL SINGLE PAX 09/27/2018 eCW2 (O pen Door FIRST FILM 12:00:00 AM [facility] EDT Center) Dental Office Visit 09/27/2018 eCW2 (Op en Door - Routine 12:00:00 AM [facility] EDT Center) Caries Risk 09/27/2018 eCW2 (Open Door Assessment - High 12:00:00 AM [facility] Med ical Risk EDT Center) Caries Risk 09/27/2018 eCW2 (Open [facility] Assessment - High 12:00:00 AM [facility] Med ical Risk EDT Center) Caries on Recall 09/27/2018 eCW2 (Open Door 12:00:00 AM [facility] EDT Center) CBC, COMPLETE W/AUTO 09/27/2018 eCW2 (O pen Door DIFF WBC 12:00:00 AM [facility] EDT Center) BEHAV CHNG SMOKING 09/20/2018 eCW2 (Ope n Door 3-10 MIN 12:00:00 AM [facility] EDT Center) Pulse Oximetry 05/12/2018 eCW2 (Open Do or 12:00:00 AM [facility]) BEHAV CHNG SMOKING 02/24/2018 eCW2 (Ope n Door 3-10 MIN 12:00:00 AM [facility]) CAPILLARY BLOOD DRAW 02/24/2018 eCW2 (O pen Door 12:00:00 AM [facility]) GLYCATED HEMOGLOBIN 02/24/2018 eCW2 (Op en Door TEST, IN-HOUSE 12:00:00 AM [facility]) COMPREHEN METABOLIC 10/14/2017 eCW2 (Op en Door PANEL 12:00:00 AM [facility]) Injection/IM or SC 09/28/2017 eCW2 (Ope n Door 12:00:00 AM [facility]) Injection, ketorolac 09/28/2017 eCW2 (O pen Door tromethamine, per [facility] CBC, COMPLETE W/AUTO 09/26/2017 eCW2 (O pen Door DIFF WBC 12:00:00 AM [facility]) Pulse Oximetry 09/26/2017 eCW2 ([facility] Do [facility] Urinalysis, Routine 09/26/2017 eCW2 (Op en Door 12:00:00 AM [facility]) BEHAV CHNG SMOKING 08/19/2017 eCW2 (Ope n Door 3-10 MIN 12:00:00 AM [facility]) Pulse Oximetry 08/19/2017 eCW2 (Open Do or 12:00:00 [facility] No Known procedures No Known procedures e CW2 ([facility]) No Known procedures No Known procedures e CW2 ([facility]) No Known procedures No Known procedures e CW2 ([facility]) No Known procedures No Known procedures e CW2 ([facility]) No Known procedures No Known procedures e CW2 ([facility]) No Known procedures No Known procedures e CW2 ([facility]) No Known procedures No Known procedures e CW2 ([facility]) Results ID Date Data Source [id number] 02/29/2020 11:59:00 AM EDT [facility] Name Value Range Interpretation Description Data Sup porting Code Source(s) Document(s ) SARS [facility] coronavirus 2 RNA This lab was ordered by [facility] and reported by [facility]. ID Date Data Source [id number] 02/24/2018 12:00:00 AM EDT eCW2 ([facility]) Name Value Range Interpretation Description Data Sup porting Code Source(s) Document(s ) Leukocytes 9.17 4.00-10 WBC eCW2 (Open [#/volume] in Blood .10 Door Famil y by Automated count Medical Center) Hemoglobin 15.6 11.0-15 HGB eCW2 (Open [Mass/volume] in .5 [facility] Blood Medical Center) Erythrocytes 4.55 3.58-5. RBC eCW2 (Open [#/volume] in Blood 19 Door Famil y by Automated count Medical Center) Erythrocyte mean 102.2 78.0-98 MCV eCW2 (Open corpuscular volume .0 [facility] [Entitic volume] by Medical Automated count Center) Hematocrit [Volume 46.5 31.5-44 HCT eCW2 (Open Fraction] of Blood .8 [facility] by Automated count Medical Center) Erythrocyte mean 34.3 25.2-32 MCH eCW2 (Open corpuscular .6 [facility] hemoglobin [Entitic Medical mass] by Automated Center) count Erythrocyte mean 33.5 31.0-34 MCHC eCW2 (Open corpuscular .7 [facility] hemoglobin Medical concentration Center) [Mass/volume] by Automated count Polymorphonuclear 64.5 37.1-78 POLYS eCW2 (Open cells/100 .1 [facility] leukocytes in Blood Medical by Manual count Center) RDW 15.8 12.0-15 RDW eCW2 (Open .5 [facility] Medical Center) Lymphocytes/100 15.2 13.7-50 LYMPHS eCW2 (Open leukocytes in Blood .9 Door Famil y by Automated count Medical Center) Monocytes/100 11.5 3.0-11. MONOS eCW2 (Open leukocytes in Blood 9 Door Famil y by Automated count Medical Center) Eosinophils/100 8.3 0.0-5.0 EOS eCW2 (Open leukocytes in Blood Door Famil y by Automated count Medical Center) Basophils/100 0.4 0.0-1.0 BASOS eCW2 (Open leukocytes in Blood Door Famil y by Automated count Medical Center) 0.1 0.0-1.0 IMMATURE eCW2 (Open GRANULOCYTES [facility]) Platelets 325 140-425 PLATELET COUNT eCW2 (Open [#/volume] in Blood Door Famil y by Automated count [facility] Center) 10.3 8.6-12. MPV eCW2 (Open 1 [facility]) ID Date Data Source * Hgb A1c Fingerstick POS.1 02/24/2018 12:00:00 AM EDT eCW2 (Open [facility]) Name Value Range Interpretation Description Data Sup porting Code Source(s) Document(s ) Hemoglobin 5.7 4 - 6 Hemoglobin A1c eCW2 (Open A1c/Hemoglobin [facility] Family .total in [facility] Blood Pace) ID Date Data Source [id number] 02/24/2018 12:00:00 AM EDT eCW2 (Open [facility]) Name Value Range Interpretation Description Data Sup porting Code Source(s) Document(s ) Albumin 4.8 3.5-5.2 Albumin eCW2 (Open [Mass/volume] in [facility] or [facility]) Protein 7.4 5.9-8.4 Total Protein eCW2 (Open [Mass/volume] in [facility] or [facility]) Globulin 2.6 1.7-3.7 Globulin eCW2 (Open [Mass/volume] in [facility]) Albumin/Globulin 1.8 1.1-2.9 A/G Ratio eCW2 (Open [Mass Ratio] in [facility] or [facility]) Sodium 143 135-147 Sodium eCW2 (Open [Moles/volume] in [facility] or [facility]) Chloride 100 96-108 Chloride eCW2 (Open [Moles/volume] in [facility] or [facility]) Potassium 4.1 3.5-5.5 Potassium eCW2 (Open [Moles/volume] in [facility] or [facility]) Carbon dioxide, 29 22-29 CO2 eCW2 (Open total [facility] [Moles/volume] in [facility] Serum or [facility]) Urea nitrogen 8 8-23 BUN eCW2 (Open [Mass/volume] in [facility] or [facility]) Creatinine 0.89 0.49-1. Creatinine eCW2 (Open [Mass/volume] in 02 [facility] or [facility]) 67 >or=60 e-GFR eCW2 (Open Door [facility]) 78 >or=60 e-GFR, eCW2 (Open Door [facility]) Mycoplasma 9.0 10.0-28 BUN/Creat eCW2 (Open pneumoniae DNA .0 Ratio Door Family [Units/volume] in Medical Blood by Probe and Center) target amplification method Bilirubin.total 0.6 <1.2 Bilirubin, eCW2 (Open [Mass/volume] in Total Door [facility] Serum or Plasma [facility] Center) Calcium 9.4 8.6-10. Calcium eCW2 (Open [Mass/volume] in 4 Door [facility] Serum or Plasma [facility] Center) Alanine 21 <33 ALT eCW2 (Open aminotransferase Door Family [Enzymatic Medical activity/volume] in Center) Serum or Plasma Alkaline 92 40-156 Alk Phos eCW2 (Open phosphatase [facility] Family [Enzymatic Medical activity/volume] in Center) Serum or Plasma Aspartate 19 <32 AST eCW2 (Open aminotransferase [facility] [Enzymatic Medical activity/volume] in Center) Serum or Plasma Glucose 123 70-99 Glucose eCW2 (Open [Mass/volume] in Door Family Serum or Plasma [facility] Center) Procedure Social History Code Duration Value Status Description Data Source(s ) Smoking 03/20/2019 Light Tobacco completed Light Tobacco [facility] 12:00:00 PM EDT Smoker Smoker Hospital Smoking 02/03/2016 Current Every completed Current Every Day [facility] [employer] [facility] 12:00:00 PM EDT Day Smoker Smoker Hospital Smoking 02/03/2016 Current Every completed Current Every Day [facility] 12:00:00 PM EDT Day Smoker Smoker Hospital Smoking Unknown if ever completed Unknown if ever eCW2 (Open Door smoked smoked [facility]) Smoking Unknown if ever completed Unknown if ever eCW2 (Open Door smoked smoked [facility]) Smoking Current Smoker completed Current Smoker eCW2 ( Open Door [facility]) Smoking Unknown if ever completed Unknown if ever eCW2 (Open Door smoked smoked [facility]) Smoking Unknown if ever completed Unknown if ever eCW2 (Open Door smoked smoked [facility]) Smoking Unknown if ever completed Unknown if ever eCW2 (Open Door smoked smoked [facility]) Smoking Unknown if ever completed Unknown if ever eCW2 (Open Door smoked smoked [facility]) Smoking Current Smoker completed Current Smoker eCW2 ( Open Door [facility]) Smoking Current Smoker completed Current Smoker eCW2 ( Open Door [facility]) Smoking Unknown if ever completed Unknown if ever eCW2 (Open Door smoked smoked [facility]) Smoking Current Smoker completed Current Smoker eCW2 ( Open Door [facility]) Smoking Unknown if ever completed Unknown if ever eCW2 (Open Door smoked smoked [facility]) Smoking Unknown if ever completed Unknown if ever eCW2 (Open Door smoked smoked [facility]) Smoking Current Smoker completed Current Smoker eCW2 ( Open Door [facility]) Smoking Unknown if ever completed Unknown if ever eCW2 (Open Door smoked smoked [facility]) Smoking Unknown if ever completed Unknown if ever eCW2 (Open Door smoked smoked [facility]) Smoking Unknown if ever completed Unknown if ever eCW2 (Open Door smoked smoked [facility]) Smoking Current Smoker completed Current Smoker eCW2 ( Open Door [facility]) Vital Signs ID Date Data Source UNK Name Value Range Interpretation Code Description Data Source(s) Diastolic blood 75 mm[Hg] 75 mm[Hg] eCW2 (Ope n Door pressure [facility]) Systolic blood 127 mm[Hg] 127 mm[Hg] eCW2 (Open Door pressure [facility]) Body mass index 26.19 kg/m2 26.19 kg/m2 eCW2 (O pen Door (BMI) [Ratio] [facility]) Body weight 152.6 152.6 [lb_av] eCW2 (Open Door Measured [lb_av] [facility]) Body height 64 [in_us] 64 [in_us] eCW2 ([facility] or [facility]) Body temperature 98.4 [degF] 98.4 [degF] eCW2 ( Open Door [facility]) Diastolic blood 63 mm[Hg] 63 mm[Hg] eCW2 (Ope n Door pressure [facility]) Systolic blood 138 mm[Hg] 138 mm[Hg] eCW2 (Open Door pressure [facility]) Body mass index 26.19 kg/m2 26.19 kg/m2 eCW2 (O pen Door (BMI) [Ratio] [facility]) Body weight 152.6 152.6 [lb_av] eCW2 (Open Door Measured [lb_av] [facility]) Body height 64 [in_us] 64 [in_us] eCW2 (Open or [facility]) Body temperature 98.0 [degF] 98.0 [degF] eCW2 ( Open Door [facility]) Diastolic blood 80 mm[Hg] 80 mm[Hg] eCW2 (Ope n Door pressure [facility]) Systolic blood 100 mm[Hg] 100 mm[Hg] eCW2 (Open Door pressure [facility]) Body mass index 26.16 kg/m2 26.16 kg/m2 eCW2 (O pen Door (BMI) [Ratio] [facility]) Body weight 152.4 152.4 [lb_av] eCW2 (Open Door Measured [lb_av] [facility]) Body height 64 [in_us] 64 [in_us] eCW2 (Open Do or [facility]) Body temperature 98.2 [degF] 98.2 [degF] eCW2 ( Open Door [facility]) Diastolic blood mm[Hg] eCW2 (Ope n Door pressure [facility]) Systolic blood 164 mm[Hg] 164 mm[Hg] eCW2 (Open Door pressure [facility]) Body mass index 25.54 kg/m2 25.54 kg/m2 eCW2 (O pen Door (BMI) [Ratio] [facility]) Body weight 148.8 148.8 [lb_av] eCW2 (Open Door Measured [lb_av] [facility]) Body height 64 [in_us] 64 [in_us] eCW2 (Open Do or [facility]) Body temperature 98.3 [degF] 98.3 [degF] eCW2 ( Open Door [facility]) Diastolic blood mm[Hg] eCW2 (Ope n Door pressure [facility]) Systolic blood 182 mm[Hg] 182 mm[Hg] eCW2 (Open Door pressure [facility]) Body mass index 26.09 kg/m2 26.09 kg/m2 eCW2 (O pen Door (BMI) [Ratio] [facility]) Body weight 152 [lb_av] 152 [lb_av] eCW2 (Open Door Measured [facility]) Body height 64 [in_us] 64 [in_us] eCW2 (Open Do or [facility]) Body temperature 98.0 [degF] 98.0 [degF] eCW2 ( Open Door [facility]) Diastolic blood 82 mm[Hg] 82 mm[Hg] eCW2 (Ope n Door pressure [facility]) Systolic blood 138 mm[Hg] 138 mm[Hg] eCW2 (Open Door pressure [facility]) Body mass index 26.09 kg/m2 26.09 kg/m2 eCW2 (O pen Door (BMI) [Ratio] [facility] [facility] Body weight 152 [lb_av] 152 [lb_av] eCW2 ([facility]) Body height 64 [in_us] 64 [in_us] eCW2 ([facility] or [facility]) Body temperature 98.1 [degF] 98.1 [degF] eCW2 ( [facility]) Diastolic blood 72 mm[Hg] 72 mm[Hg] eCW2 ([facility] pressure [facility]) Systolic blood 152 mm[Hg] 152 mm[Hg] eCW2 ([facility] pressure [facility]) Body mass index 25.74 kg/m2 25.74 kg/m2 eCW2 ([facility] (BMI) [Ratio] [facility]) Body weight 150 [lb_av] 150 [lb_av] eCW2 ([facility]) Body height 64 [in_us] 64 [in_us] eCW2 ([facility]) Body temperature 97.0 [degF] 97.0 [degF] eCW2 ( [facility]) Diastolic blood 82 mm[Hg] 82 mm[Hg] eCW2 ([facility] pressure [facility]) Systolic blood 122 mm[Hg] 122 mm[Hg] eCW2 ([facility] pressure [facility]) Body mass index 26.09 kg/m2 26.09 kg/m2 eCW2 ([facility] (BMI) [Ratio] [facility]) Body weight 152 [lb_av] 152 [lb_av] eCW2 ([facility]) Body height 64 [in_us] 64 [in_us] eCW2 ([facility] or [facility]) Body temperature 98.6 [degF] 98.6 [degF] eCW2 ( [facility]) Diastolic blood 74 mm[Hg] 74 mm[Hg] eCW2 ([facility] pressure [facility]) Systolic blood 121 mm[Hg] 121 mm[Hg] eCW2 ([facility] pressure [facility]) Body mass index 25.20 kg/m2 25.20 kg/m2 eCW2 ([facility] (BMI) [Ratio] [facility]) Body weight 146.8 146.8 [lb_av] eCW2 ([facility] Measured [lb_av] [facility]) Body height 64 [in_us] 64 [in_us] eCW2 ([facility]) Body temperature 97.8 [degF] 97.8 [degF] eCW2 ( [facility]) Patient Treatment Plan of Care Planned Activity Planned Date Details Description Data Source (s) Meclizine Hydrochloride 05/12/2018 eCW2 ([facility] 12.5 MG Oral Tablet 12:00:00 AM [facility]) Meclizine Hydrochloride 05/12/2018 eCW2 ([facility] 12.5 MG Oral Tablet 12:00:00 AM [facility]) Sulfamethoxazole 800 MG / 05/12/2018 eC W2 ([facility] Trimethoprim 160 MG Oral 12:00:[address] [facility]) Clotrimazole, Topical 1% 05/12/2018 eCW 2 ([facility] 12:00:00 AM [facility]) Antivert 25 mg 04/26/2018 eCW2 ([facility] or 12:00:00 AM [facility]) ketoconazole topical 2% 04/26/2018 eCW2 ([facility] 12:00:00 AM [facility]) Kuric 2% 04/26/2018 eCW2 ([facility] 12:00:00 AM [facility]) Triamcinolone Acetonide 02/24/2018 eCW2 ([facility] Topical 0.1% 12:00:00 AM [facility]) Toradol (ketorolac) 30mg/mL 09/28/2017 eCW2 ([facility] 12:00:00 AM [facility]) atorvastatin 20 MG Oral 08/12/2017 eCW2 ([facility] Tablet 12:00:00 AM [facility]) Losartan Potassium 25 MG 08/05/2017 eCW 2 ([facility] Oral Tablet [Cozaar] 12:00:00 AM [facility]) Losartan Potassium 25 MG 08/05/2017 eCW 2 ([facility] Oral Tablet [Cozaar] 12:00:00 AM [facility]) Losartan Potassium 25 MG 08/05/2017 eCW 2 ([facility] Oral Tablet [Cozaar] 12:00:00 AM [facility]) Losartan Potassium 25 MG 08/05/2017 eCW 2 ([facility] Oral Tablet [Cozaar] 12:00:00 AM [facility]) 200 ACTUAT Albuterol 0.09 eC W2 ([facility] MG/ACTUAT Metered Dose [facility]) 7 ACTUAT umeclidinium eCW2 ( [facility] 0.0625 MG/ACTUAT / [facility] vilanterol 0.025 MG/ACTUAT C enter) Dry Powder Inhaler [Anoro] cetirizine hydrochloride 10 eCW2 ([facility] MG Oral Tablet [Zyrtec] [facility]) Methotrexate 2.5 MG Oral eCW 2 ([facility] Tablet [facility]) bimatoprost 0.1 MG/ML eCW2 ( [facility] Ophthalmic Solution [facility] edical [[facility]] [facility]) 0.8 ML adalimumab 50 MG/ML e CW2 ([facility] Prefilled Syringe [Humira] [facility]) Propranolol Hydrochloride eC W2 ([facility] 10 MG Oral Tablet [facility]) cetirizine hydrochloride 10 eCW2 ([facility] MG Oral Tablet [Zyrtec] [facility]) Propranolol Hydrochloride eC W2 ([facility] 10 MG Oral Tablet [facility]) Propranolol Hydrochloride eC W2 ([facility] 10 MG Oral Tablet [facility]) Humira 40 mg/0.8 mL eCW2 ([facility])
[2020-03-04] MEDS: PHENYLEPHRINE 2.5% OPHTH SOLN 15 ML BOTTLE OS SCH ×5 (08:55→09:15)
[2020-03-04] MEDS: CYCLOPENTOLATE HCL 1% OPHTH SOLN 2 ML BOTTLE OS SCH ×5 (08:55→09:15)
[2020-03-04] MEDS: KETOROLAC TROMETHAMINE 0.5% EYE DROP 1 DROP DROPS OS SCH ×5 (08:55→09:15)
[2020-03-04] MEDS: OFLOXACIN 0.3% OPHTHALMIC SOLUTION 5 ML BOTTLE OS SCH ×5 (08:55→09:15)
[2020-03-04] MEDS: TROPICAMIDE 1% OPHTH SOLN 15 ML BOTTLE OS SCH ×5 (08:55→09:15)
[2020-03-04] MEDS ORDERED: ACETAMINOPHEN 325 MG TABLET (FP) PO PRN ×2 (11:12→11:27)
[2020-03-04] MEDS ORDERED: ONDANSETRON 4 MG/2 ML VIAL IVPUSH PRN (11:12)
[2020-03-04] MEDS ORDERED: LACTATED RINGERS SOLUTION 1,000 ML IV SCH (11:15)
--- NOTE | 2020-03-04 11:46 | OP ---
DATE OF OPERATION: 03/04/2020 PREOPERATIVE DIAGNOSIS: Cataract, left eye. POSTOPERATIVE DIAGNOSIS: Cataract, left eye. PROCEDURE: Cataract extraction via phacoemulsification with insertion of posterior chamber lens implant, left eye. SURGEON: Joaquin Davis MD [employer] REPRESENTATIVE: Darlyn Gallo MD ANESTHESIA: Topical with sedation. ESTIMATED BLOOD LOSS: Less than 1 mL. COMPLICATIONS: None. SPECIMENS: None. PROCEDURE: The patient was identified in the holding area. After all risks, benefits and alternatives were explained to the patient, informed consent was obtained. The left eye was marked with a marking pen. The patient then entered the operating room on an eye stretcher. After a formal timeout was performed, topical tetracaine eye drops were instilled onto the left eye. Left eye was then prepped and draped in usual sterile fashion. An eyelid speculum was placed beneath the eyelids of the left eye. An inferotemporal paracentesis incision was created using a 15-degree blade. Topical preservative-free epinephrine and preservative-free lidocaine were then injected into the anterior chamber. Viscoelastic was then injected into the anterior chamber. A 2.4-mm keratome blade was then used to make a superotemporal incision. A 360-degree continuous curvilinear capsulorrhexis was then created using bent cystotome and Utrata forceps. Hydrodissection was performed using balanced saline solution on a cannula. Phacoemulsification was introduced. It disassembled and removed the nucleus in its entirety. Irrigation/aspiration was then used to remove any remaining cortical material from the eye. The capsular bag was reformed using viscoelastic. An Skyler model [id number] with a power of 25.5 diopters, serial number [id number] was inspected, found to be defect free and injected in the capsular bag. Irrigation/aspiration was then used to remove any remaining viscoelastic from the eye. All wounds were hydrated with balanced saline solution, noted to be watertight. There was a red reflex present. The anterior chamber was deep. The eye had adequate pressure and the lens was perfectly centered in the capsular bag. Topical antibiotic eye drops and ointment were then administered to the left eye. The eyelid speculum was removed from the left eye. Left eye was shielded. The patient tolerated the procedure well, left the operating room in stable condition, to follow up in the eye clinic tomorrow morning at 10 o'clock. Vj [id number]
[2020-03-04 12:47] VITALS: TEMP 97.6
[2020-03-04 12:58] VITALS: BP 132/76; PULSE 74
[2020-03-04] MEDS ORDERED: TETRACAINE 0.5% OPHTH SOLN 2 ML BOTTLE ONE (13:15)
[2020-03-04] MEDS ORDERED: NEO/POLYMYX B SULF/DEXAMETH OPHTHALMIC 5ML BOTTLE ONE (13:15)
[2020-03-04] MEDS ORDERED: BETAXOLOL HCL 0.25% OPHTHALMIC 10 ML DROPSBTL ONE (13:15)
[2020-03-04] MEDS ORDERED: POVIDONE-IODINE 5% OPHTHALMIC PREP 30 ML SOLUTION ONE (13:15)
[2020-03-04] MEDS ORDERED: EPI-SHUGARCAINE (EPINEPHRINE 0.025% & LIDOCAINE-PF 0.75%) 4ML ONE (13:15)
[2020-03-04] MEDS ORDERED: BACITRACIN/POLYMYXIN OPH OINT 3.5 GM TUBE ONE (13:15)
== END 2020-03-04 12:40 | disposition home or self-care (01) ==
LOC: FASU 08:20
PROVIDERS: ATTEND Ophthalmology
PROC: 08RK3JZ Replacement of Left Lens with Synthetic Substitute, Percutaneous Approach (ICD-10-PCS; principal; 2020-03-04 10:58)
DX: H26.9 Unspecified cataract (principal)